=== PATIENT | male | born 1980 | race African-American/Black ===

== ENCOUNTER 2017-01-13 19:14 | Emergency (ER) | payer MEDICAID ==
[2013-03-13 13:05] VITALS: BMI 23.2
[~2017-01-13 19:14] MED LIST: ACCURETIC 10-121 TAB PO; CYMBALTA30 MG PO; FELDENE20 MG PO; FLAGYL500 MG PO; GLUCOPHAGE500 MG PO; K-DUR20 MEQ PO; LANTUS SOL100 UNIT/1 SQ; TYLENOL 325 MG325 MG PO
== END 2017-01-13 20:03 | disposition home or self-care (01) ==
LOC: D.ER 19:14
DX: M17.11 Unilateral primary osteoarthritis, right knee (principal); M25.561 Pain in right knee; E11.9 Type 2 diabetes mellitus without complications; F17.200 Nicotine dependence, unspecified, uncomplicated

== ENCOUNTER 2017-02-10 19:34 | Emergency (ER) | payer MEDICAID ==
[2013-03-13 13:05] VITALS: BMI 23.2
== END 2017-02-10 20:56 | disposition home or self-care (01) ==
LOC: D.ER 19:34
DX: S00.81XA Abrasion of other part of head, initial encounter (principal); W10.9XXA Fall (on) (from) unspecified stairs and steps, initial encounter; Y93.89 Activity, other specified; Y92.89 Other specified places as the place of occurrence of the external cause; S00.212A Abrasion of left eyelid and periocular area, initial encounter; S16.1XXA Strain of muscle, fascia and tendon at neck level, initial encounter; E11.9 Type 2 diabetes mellitus without complications; F17.200 Nicotine dependence, unspecified, uncomplicated

== ENCOUNTER → 2018-01-10 08:30 | Outpatient (CLI) | payer MEDICAID ==
[2013-03-13 13:05] VITALS: BMI 23.2
[~2018-01-10 08:30] MED LIST changes: +CLEOCIN HCL300 MG PO
== END | disposition home or self-care (01) ==
LOC: D.US 08:00
DX: R11.2 Nausea with vomiting, unspecified (principal); R79.89 Other specified abnormal findings of blood chemistry

== ENCOUNTER 2018-02-12 15:26 | Emergency (ER) | payer MEDICAID ==
[~2018-02-12] VITALS: Ht 157.5 cm; Wt 70.5 kg
[~2018-02-12 15:26] MED LIST changes: -CLEOCIN HCL300 MG PO
[2018-02-12 15:36] VITALS: Ht 157.5 cm; Wt 70.5 kg
[2018-02-12 16:23] LABS: BASOPHILS 0.2 % (0-2); EOSINOPHILS 0.2 % (0-7); HEMATOCRIT 36.5 % (42.0-54.0); HEMOGLOBIN 12.8 g/dL (13.5-17.5); IMMATURE GRANULOCYTES 0.3 % (0-5); MCH 33.4 pg (26.0-34.0); MCHC 35.1 g/dL (31.0-37.0); MCV 95.3 fL (80.0-100.0); MEAN PLATELET VOLUME 9.9 fL (7.4-10.4); NEUTROPHILS 78.3 % (40-80); PLATELET COUNT 224 10x3/uL (130-400); RBC 3.83 10x6/uL (4.20-6.10); RDW 11.7 % (11.5-14.5); WBC 17.4 10x3/uL (4.8-10.8)
[2018-02-12 16:48] LABS: ALBUMIN 3.6 g/dL (3.4-5.0); ALKALINE PHOSPHATASE 81 U/L (46-116); ALT (SGPT) 42 U/L (10-68); BILIRUBIN - TOTAL 1.01 mg/dL (0.2-1.3); CALC OSMOLALITY 267 mosm/kg (275-300); CALCIUM 8.6 mg/dL (8.5-10.1); CARBON DIOXIDE 28.8 mmol/L (21.0-32.0); CHLORIDE - SERUM 94 mmol/L (98-107); GLUCOSE 210 mg/dL (74-106); PROTEIN - SERUM 7.7 g/dL (6.4-8.2); SODIUM 132 mmol/L (136-145); UREA NITROGEN 4 mg/dL (7-18); eGFR NON AFRICAN AMERICAN 89 mL/min (90-120)
[2018-02-12] MEDS ORDERED: CLEOCIN HCL300 MG PO (18:42)
[2018-02-12 19:14] VITALS: BP 144/87
== END 2018-02-12 19:13 | disposition home or self-care (01) ==
LOC: D.ER 15:26
PROVIDERS: Family Medicine
DX: L03.211 Cellulitis of face (principal); E11.8 Type 2 diabetes mellitus with unspecified complications; I10 Essential (primary) hypertension; F17.200 Nicotine dependence, unspecified, uncomplicated

== ENCOUNTER 2018-04-13 08:52 | Inpatient (IN) | payer MEDICAID ==
[~2018-04-13] VITALS: Ht 152.4 cm; Wt 63.5 kg
--- NOTE | ~2018-04-13 | MORECARE ---
CASE MANAGEMENT DISCHARGE SUMMARY PATIENT: SALLY SALGUERO UNIT: [id number] ADM DATE: 04/13/18 AGE: 37 : 79 SEX: M ROOM/BED: D.2239 AUTHOR: ADAMARISDOC PHYSICIAN: REFERRING PHYSICIAN: LUIS MARIN MD DATE OF SERVICE: 04/14/18 Discharge Plan Patient Name: SALLY SALGUERO Facility: [facility]:[place] : 1980 Planned Disposition: Home Anticipated Discharge Date: 04/14/18 Discharge Date: Expected LOS: 1 Initial Reviewer: [email or web address] Initial Review Date: 04/14/2018 Generated: 04/14/18 11:36 am Comments DCP- Discharge Planning Updated by [email or web address]: Radha Arredondo on 04/14/18 9:[address] Patient Name: SALLY SALGUERO Admission Status: ER Accout number: [id number] Admission Date: 04-13-2018 : 1980 Admission Diagnosis: Attending: LUIS MARIN Current LOS: 1 Anticipated DC Date: 04-14-2018 Planned Disposition: Home Primary Insurance: [place] PRIVATE OPTIONS HENRRY Discharge Planning Comments: Received order for discharge. Met with patient to discuss needs at discharge. States he lives independently with his and 2 kids. States he has a glucometer and checks his blood sugar twice a day. States he has family that will take him home. Discussed home health, declines need. Denies needs for DME. No needs identified. CM will continue to follow and assist with discharge planning/needs. Technician Terminal And Repeater: Radha Arredondo DCPIA - Discharge Planning Initial Assessment Updated by [id number]: Radha Arredondo on 04/14/18 10:32 am * Is the patient Alert and Oriented? Yes * How many steps to enter\exit or inside your home? 15/0 * PCP Sheeba Caruso APN * Pharmacy [facility] [address] * Preadmission Environment Home with Family * ADLs Independent * Equipment Glucometer * List name and contact numbers for known caregivers / representatives who currently or will assist patient after discharge: Dora Salguero - [facility] - [phone] * Verbal permission to speak to the caregivers and representatives has been obtained from the patient. Yes * Community resources currently utilized None * Additional services required to return to the preadmission environment? No * Can the patient safely return to the preadmission environment? Yes * Has this patient been hospitalized within the prior 30 days at any hospital? No Patient Name: SALLY SALGUERO Page 98143 at 1036 All edits/amendments must be made on the electronic document DICTATION DATE: 04/14/18 103 DIETITIAN TEACHER: ELIZABET 04/14/18 1035 RPT#: [id number] DC DATE: STATUS: ADM IN [facility] [address] [place] [address] END OF REPORT
--- NOTE | ~2018-04-13 | HP ---
PATIENT: SALLY SALGUERO MEDICAL RECORD: [id number] ACCOUNT: [id number] LOCATION:D.MS [address]2239 : [birth year] ADMISSION DATE: 04/13/18 PCP: JAC CABAN MD HISTORY AND PHYSICAL EXAMINATION DATE OF ADMISSION: 04/13/2018 CHIEF COMPLAINT: Weakness, loss of appetite, abdominal pain, nausea, and dizzy. HISTORY: This is a 37-year-old -[place], who is followed by Sheeba Caruso APN, at [facility]. He presents with weakness, low appetite, nausea, dizziness, and balance being off for the last week or so. In the ER, his sodium was 123 and chloride was 83. The rest of the basic metabolic panel was fairly unremarkable. His AST was elevated at 80 and ALT was elevated at 72. Urine drug screen positive for marijuana. Chest x-ray showed no acute process. CT of the abdomen showed no acute process. He is admitted for further evaluation. PAST MEDICAL AND SURGICAL HISTORY: Diabetes, diagnosed approximately 4-5 years ago. He has had intermittent vomiting, frequent nausea, and heartburn. He has had history of LFTs in the past, may be due to alcohol consumption. He has hypertension. PAST SURGICAL HISTORY: None. ALLERGIES: NITRATES. HOME MEDICATIONS: Hydroxyzine 25 mg at bedtime, metformin 1000 mg twice a day, diclofenac 75 mg twice a day as needed, lisinopril/hydrochlorothiazide 20/25 once a day, and takes Lantus 5 units of insulin daily. HABITS: He smokes daily. He drinks at least 2 tall cans of beer a day. He admits to smoking marijuana. SOCIAL HISTORY: Lives with and 2 children. FAMILY HISTORY: Both parents are alive. He knows his father has diabetes, but not sure about anything else. His mother has lupus. REVIEW OF SYSTEMS: GENERAL: He admits to some weight loss, but cannot say how much. HEENT: No particular sinus or allergy problems. RESPIRATORY: No diagnosis of emphysema or asthma at this time. CARDIAC: No chest pain, palpitations, or known heart disease. GASTROINTESTINAL: He has had intermittent vomiting, frequent nausea, and some heartburn for months if not longer. He has had elevated liver functions. In December 2017, his ALT was 42 and AST was 47; but in 2016, his ALT was 115 and AST was 125. GENITOURINARY: No significant problems there. MUSCULOSKELETAL: Few joint aches and pains. NEUROLOGIC: No seizures or migraines. PSYCHIATRIC: Denies depression or melancholia. PHYSICAL EXAMINATION: VITAL SIGNS: Today, temperature 98.7, pulse 84, respirations 20, blood pressure HISTORY AND PHYSICAL [id number] SALLY SALGUEROONT 133/89, and O2 sat 99%. GENERAL: He is awake, alert, and does not appear in acute distress. SKIN: Warm and dry. He has several tattoos. HEENT: Grossly within normal limits. NECK: Supple. No JVD or bruit. HEART: Regular rate and rhythm without murmur. LUNGS: Clear. ABDOMEN: Soft and nontender. No guarding. No rebound. No mass. EXTREMITIES: No edema. LABORATORIES: Lactic acid was 3.5 this morning. CBC showed white count of 12,000 and hemoglobin 13.9. Sodium 123, potassium 4.0, chloride 83, CO2 of 26.7, BUN 4, creatinine 0.9, glucose 185, and calcium 9.0. Total bilirubin 1.56, AST 80, and ALT 72. Troponin is okay at 0.044. proBNP 178. TSH 1.89. Influenza A and B were both negative. Urine drug screen was positive for carboxy THC. DIAGNOSTIC DATA: Chest x-ray showed no acute process. CT of the abdomen showed no acute process. ASSESSMENT: Weakness, nausea, hyponatremia, elevated liver enzymes, and alcohol use. PLAN: We will check lipase and amylase. Get ultrasound of the abdomen. Hold metformin for 2 days since he had CT. Recheck liver enzymes. He may need GI consult. Other tests or procedures as warranted. TRANSINT:[id number] Voice Confirmation ID: [id number] DOCUMENT ID: [id number] LUIS MARIN MD at 2116 CC: [id number] DICTATION DATE: 04/13/18 1557 HEALTHCARE SALES REPRESENTATIVE: 04/13/18 1853 ADM IN [place] [address] [place] [address]
--- NOTE | ~2018-04-13 | MORECARE ---
CASE MANAGEMENT DISCHARGE SUMMARY PATIENT: SALLY SALGUERO UNIT: [id number] ADM DATE: 04/13/18 AGE: 37 : 78 SEX: M ROOM/BED: D.2239 AUTHOR: CLARISSA BAILON PHYSICIAN: REFERRING PHYSICIAN: LUIS MARIN MD DATE OF SERVICE: 04/17/18 Discharge Plan Patient Name: SALLY SALGUERO Facility: [facility]:[place] : 1980 Planned Disposition: Home Anticipated Discharge Date: 04/14/18 Discharge Date: 04/14/2018 Expected LOS: 1 Initial Reviewer: [email or web address] Initial Review Date: 04/14/2018 Generated: 04/17/18 12:14 pm Comments DCP- Discharge Planning Updated by [email or web address]: Radha Arredondo on 04/14/18 9:[address] Patient Name: SALLY SALGUERO Admission Status: ER Accout number: [id number] Admission Date: 04-13-2018 : 1980 Admission Diagnosis: Attending: LUIS MARIN Current LOS: 1 Anticipated DC Date: 04-14-2018 Planned Disposition: Home Primary Insurance: [place] PRIVATE OPTIONS HENRRY Discharge Planning Comments: Received order for discharge. Met with patient to discuss needs at discharge. States he lives independently with his and 2 kids. States he has a glucometer and checks his blood sugar twice a day. States he has family that will take him home. Discussed home health, declines need. Denies needs for DME. No needs identified. CM will continue to follow and assist with discharge planning/needs. Gasoline Power Shovel Operator: Radha Arredondo DCPIA - Discharge Planning Initial Assessment Updated by [email or web address]: Radha Arredondo on 04/14/18 10:32 am * Is the patient Alert and Oriented? Yes * How many steps to enter\exit or inside your home? 15/0 * PCP Sheeba Caruso APN * Pharmacy [facility] [address] * Preadmission Environment Home with Family * ADLs Independent * Equipment Glucometer * List name and contact numbers for known caregivers / representatives who currently or will assist patient after discharge: Dora Salguero - [facility] - [phone] * Verbal permission to speak to the caregivers and representatives has been obtained from the patient. Yes * Community resources currently utilized None * Additional services required to return to the preadmission environment? No * Can the patient safely return to the preadmission environment? Yes * Has this patient been hospitalized within the prior 30 days at any hospital? No Last DP export: 04/17/18 10:08 Patient Name: SALLY SALGUERO Page [phone] at 1114 All edits/amendments must be made on the electronic document DICTATION DATE: 04/17/181113 BALL MILL MIXER: ELIZABET 04/17/181113 RPT#: [id number] DC DATE:04/14/18 STATUS: DIS IN [facility] [address] [place] [address] END OF REPORT
--- NOTE | ~2018-04-13 | MORECARE ---
CASE MANAGEMENT DISCHARGE SUMMARY PATIENT: SALLY SALGUERO UNIT: [id number] ADM DATE: 04/13/18 AGE: 37 : 78 SEX: M ROOM/BED: D.2239 AUTHOR: CLARISSA BAILON PHYSICIAN: REFERRING PHYSICIAN: LUIS MARIN MD DATE OF SERVICE: 04/17/18 Discharge Plan Patient Name: SALLY SALGUERO Facility: [facility]:[place] : 1980 Planned Disposition: Home Anticipated Discharge Date: 04/14/18 Discharge Date: 04/14/2018 Expected LOS: 1 Initial Reviewer: [email or web address] Initial Review Date: 04/14/2018 Generated: 04/17/18 12:08 pm Comments DCP- Discharge Planning Updated by [email or web address]: Radha Arredondo on 04/14/18 9:[address] Patient Name: SALLY SALGUERO Admission Status: ER Accout number: [id number] Admission Date: 04-13-2018 : 1980 Admission Diagnosis: Attending: LUIS MARIN Current LOS: 1 Anticipated DC Date: 04-14-2018 Planned Disposition: Home Primary Insurance: [place] PRIVATE OPTIONS HENRR[place] Discharge Planning Comments: Received order for discharge. Met with patient to discuss needs at discharge. States he lives independently with his and 2 kids. States he has a glucometer and checks his blood sugar twice a day. States he has family that will take him home. Discussed home health, declines need. Denies needs for DME. No needs identified. CM will continue to follow and assist with discharge planning/needs. Marine Propulsion Technician: Radha Arredondo DCPIA - Discharge Planning Initial Assessment Updated by [email or web address]: Radha Arredondo on 04/14/18 10:32 am * Is the patient Alert and Oriented? Yes * How many steps to enter\exit or inside your home? 15/0 * PCP Sheeba Caruso APN * Pharmacy [facility] [address] * Preadmission Environment Home with Family * ADLs Independent * Equipment Glucometer * List name and contact numbers for known caregivers / representatives who currently or will assist patient after discharge: Dora Salguero - [facility] - [phone] * Verbal permission to speak to the caregivers and representatives has been obtained from the patient. Yes * Community resources currently utilized None * Additional services required to return to the preadmission environment? No * Can the patient safely return to the preadmission environment? Yes * Has this patient been hospitalized within the prior 30 days at any hospital? No Last DP export: 04/14/18 9:36 Patient Name: SALLY SALGUERO Page 69009 at 1108 All edits/amendments must be made on the electronic document DICTATION DATE: 04/17/181106 CLINICAL DENTAL TECHNICIAN: ELIZABET 04/17/181106 RPT#: [id number] DC DATE:04/14/18 STATUS: DIS IN [facility] [address] [place] [address] END OF REPORT
[~2018-04-13 08:52] MED LIST changes: +CLEOCIN HCL300 MG PO
[2018-04-13 09:12] LABS: BASOPHILS 0.2 % (0-2); EOSINOPHILS 0.4 % (0-7); HEMATOCRIT 37.7 % (42.0-54.0); HEMOGLOBIN 13.9 g/dL (13.5-17.5); IMMATURE GRANULOCYTES 0.2 % (0-5); LYMPHOCYTES 19.8 % (15-50); MCH 34.4 pg (26.0-34.0); MCHC 36.9 g/dL (31.0-37.0); MCV 93.3 fL (80.0-100.0); MONOCYTES 6.3 % (2-11); NEUTROPHILS 73.1 % (40-80); PLATELET COUNT 220 10x3/uL (130-400); RBC 4.04 10x6/uL (4.20-6.10); RDW 11.3 % (11.5-14.5); WBC 12.4 10x3/uL (4.8-10.8)
[2018-04-13 09:28] LABS: ALBUMIN 3.6 g/dL (3.4-5.0); ALKALINE PHOSPHATASE 84 U/L (46-116); ALT (SGPT) 72 U/L (10-68); BILIRUBIN - TOTAL 1.56 mg/dL (0.2-1.3); CALC OSMOLALITY 249 mosm/kg (275-300); CARBON DIOXIDE 26.7 mmol/L (21.0-32.0); CREATININE - SERUM 0.9 mg/dL (0.6-1.3); GLUCOSE 185 mg/dL (74-106); PROTEIN - SERUM 7.6 g/dL (6.4-8.2); SODIUM 123 mmol/L (136-145); UREA NITROGEN 4 mg/dL (7-18); eGFR NON AFRICAN AMERICAN > 90 mL/min (90-120)
[2018-04-13 09:30] LABS: CHLORIDE - SERUM 83 mmol/L (98-107)
[2018-04-13 09:33] LABS: KETONE - SERUM NEGATIVE (NEGATIVE)
[2018-04-13 09:48] VITALS: BP 136/87
[2018-04-13 09:51] LABS: LIPASE 89 U/L (73-393); PRO BNP 178 pg/mL (0-125); THYROID STIMULATING HORMONE 1.89 uIU/mL (0.36-3.74); TROPONIN-I 0.044 ng/mL (0.000-0.060)
[2018-04-13 10:28] LABS: APPEARANCE CLEAR (CLEAR); COLOR AMBER (YELLOW)
[2018-04-13 10:29] LABS: BILIRUBIN NEGATIVE (NEGATIVE); GLUCOSE 50 mg/dL (NEGATIVE); KETONE NEGATIVE (NEGATIVE); NITRITE NEGATIVE (NEGATIVE); PROTEIN NEGATIVE (NEGATIVE); SPECIFIC GRAVITY 1.005 (1.005-1.020)
[2018-04-13 10:34] LABS: UDS - AMPHET NEGATIVE QUAL (NEGATIVE); UDS - BARB NEGATIVE QUAL (NEGATIVE); UDS - BENZO NEGATIVE QUAL (NEGATIVE); UDS - COCAINE NEGATIVE QUAL (NEGATIVE); UDS - OPIATE NEGATIVE QUAL (NEGATIVE); UDS - PCP NEGATIVE QUAL (NEGATIVE); UDS - THC POSITIVE QUAL (NEGATIVE)
[2018-04-13 11:04] VITALS: BP 127/90
[2018-04-13 12:45] VITALS: BP 133/89; Ht 152.4 cm; Wt 63.5 kg
[2018-04-13 20:01] VITALS: BP 121/88
[2018-04-14 04:25] VITALS: BP 122/81
[2018-04-14 05:35] LABS: BASOPHILS 0.2 % (0-2); EOSINOPHILS 1.2 % (0-7); IMMATURE GRANULOCYTES 0.1 % (0-5); LYMPHOCYTES 20.7 % (15-50); MCH 33.3 pg (26.0-34.0); MCHC 35.4 g/dL (31.0-37.0); MCV 94.1 fL (80.0-100.0); MEAN PLATELET VOLUME 9.9 fL (7.4-10.4); MONOCYTES 6.4 % (2-11); NEUTROPHILS 71.4 % (40-80); PLATELET COUNT 198 10x3/uL (130-400); RDW 11.4 % (11.5-14.5)
[2018-04-14 05:55] LABS: HEMATOCRIT 28.5 % (42.0-54.0); HEMOGLOBIN 10.1 g/dL (13.5-17.5); RBC 3.03 10x6/uL (4.20-6.10); WBC 8.3 10x3/uL (4.8-10.8)
[2018-04-14 06:02] LABS: ALBUMIN 2.8 g/dL (3.4-5.0); ALKALINE PHOSPHATASE 57 U/L (46-116); ALT (SGPT) 54 U/L (10-68); BILIRUBIN - TOTAL 0.91 mg/dL (0.2-1.3); CALCIUM 8.1 mg/dL (8.5-10.1); CARBON DIOXIDE 26.6 mmol/L (21.0-32.0); CHLORIDE - SERUM 97 mmol/L (98-107); CREATININE - SERUM 0.8 mg/dL (0.6-1.3); PROTEIN - SERUM 5.9 g/dL (6.4-8.2); SODIUM 131 mmol/L (136-145); UREA NITROGEN 3 mg/dL (7-18); eGFR NON AFRICAN AMERICAN > 90 mL/min (90-120)
[2018-04-14 06:03] LABS: CALC OSMOLALITY 261 mosm/kg (275-300); GLUCOSE 129 mg/dL (74-106); POTASSIUM - SERUM 3.3 mmol/L (3.5-5.1)
[2018-04-14 07:59] VITALS: BP 148/92
== END 2018-04-14 10:55 | disposition home or self-care (01) | DRG 641 ==
LOC: D.ER 08:52 → D.EDHOLD 11:21 → OBSVTIME 11:22 → D.MS 11:23
PROVIDERS: Family Medicine
DX: E87.1 Hypo-osmolality and hyponatremia (principal); E87.8 Other disorders of electrolyte and fluid balance, not elsewhere classified; R79.89 Other specified abnormal findings of blood chemistry; E11.9 Type 2 diabetes mellitus without complications; Z79.4 Long term (current) use of insulin; I10 Essential (primary) hypertension; F17.210 Nicotine dependence, cigarettes, uncomplicated; Z72.89 Other problems related to lifestyle; F12.90 Cannabis use, unspecified, uncomplicated; R63.0 Anorexia

== ENCOUNTER 2018-12-11 22:48 | Emergency (ER) | payer MEDICAID ==
[2018-12-11 22:57] VITALS: BMI 28.3
[2018-12-11] MEDS ORDERED: VIBRAMYCIN 100100 MG PO (23:11)
[2018-12-11] MEDS ORDERED: HYDROCODON-ACE1 EAC7 PO (23:11)
[2018-12-12 00:04] LABS: BASOPHILS 0.4 % (0-2); EOSINOPHILS 1.8 % (0-7); HEMATOCRIT 34.1 % (42.0-54.0); HEMOGLOBIN 12.2 g/dL (13.5-17.5); IMMATURE GRANULOCYTES 0.2 % (0-5); LYMPHOCYTES 38.7 % (15-50); MCH 33.1 pg (26.0-34.0); MCHC 35.8 g/dL (31.0-37.0); MCV 92.4 fL (80.0-100.0); MEAN PLATELET VOLUME 9.7 fL (7.4-10.4); MONOCYTES 6.3 % (2-11); NEUTROPHILS 52.6 % (40-80); PLATELET COUNT 221 10x3/uL (130-400); RBC 3.69 10x6/uL (4.20-6.10); RDW 12.3 % (11.5-14.5)
[2018-12-12 00:10] VITALS: BP 115/76
[2018-12-12 00:18] LABS: ALBUMIN 3.2 g/dL (3.4-5.0); ALKALINE PHOSPHATASE 92 U/L (46-116); ALT (SGPT) 52 U/L (10-68); BILIRUBIN - TOTAL 0.27 mg/dL (0.2-1.3); CALC OSMOLALITY 280 mosm/kg (275-300); CALCIUM 8.6 mg/dL (8.5-10.1); CARBON DIOXIDE 23.4 mmol/L (21.0-32.0); CHLORIDE - SERUM 101 mmol/L (98-107); CREATININE - SERUM 0.8 mg/dL (0.6-1.3); GLUCOSE 157 mg/dL (74-106); POTASSIUM - SERUM 3.9 mmol/L (3.5-5.1); PROTEIN - SERUM 7.1 g/dL (6.4-8.2); SODIUM 141 mmol/L (136-145); UREA NITROGEN 5 mg/dL (7-18); eGFR NON AFRICAN AMERICAN > 90 mL/min (90-120)
== END 2018-12-12 00:10 | disposition home or self-care (01) ==
LOC: D.ER 22:48
PROVIDERS: Emergency Medicine
DX: N49.2 Inflammatory disorders of scrotum (principal)

== ENCOUNTER 2019-03-04 07:33 | Emergency (ER) | payer MEDICAID ==
[~2019-03-04] VITALS: Ht 152.4 cm; Wt 65.9 kg
[~2019-03-04 07:33] MED LIST changes: +HYDROCODON-ACE1 EAC7 PO; +VIBRAMYCIN 100100 MG PO
[2019-03-04 07:35] VITALS: Ht 152.4 cm; Wt 65.9 kg
[2019-03-04] MEDS ORDERED: MEGACE 20 MG TA20 MG PO (07:49)
[2019-03-04] MEDS ORDERED: ATARAX 25 MG TA25 MG PO (07:50)
[2019-03-04] MEDS ORDERED: ATARAX 25 MG TA25 MG (07:50)
[2019-03-04] MEDS ORDERED: NEURONTIN 300300 MG PO (07:51)
[2019-03-04] MEDS ORDERED: GLUCOPHAGE1000 MG PO (07:51)
[2019-03-04] MEDS ORDERED: BUSPAR10 MG PO (07:52)
[2019-03-04] MEDS ORDERED: ZOCOR10 MG PO (07:52)
[2019-03-04] MEDS ORDERED: ALBUTEROL SULF8.5 GM INH (08:12)
[2019-03-04] MEDS ORDERED: KEFLEX500 MG PO (08:21)
[2019-03-04 08:44] VITALS: BP 110/64
== END 2019-03-04 08:46 | disposition home or self-care (01) ==
LOC: D.ER 07:33
DX: R06.00 Dyspnea, unspecified (principal)

== ENCOUNTER 2019-04-18 21:40 | Emergency (ER) | payer MEDICAID ==
[~2019-04-18] VITALS: Ht 152.4 cm; Wt 65.9 kg
[~2019-04-18 21:40] MED LIST changes: +ALBUTEROL SULF8.5 GM INH; +ATARAX 25 MG TA25 MG; +ATARAX 25 MG TA25 MG PO; +BUSPAR10 MG PO; +GLUCOPHAGE1000 MG PO; +KEFLEX500 MG PO; +MEGACE 20 MG TA20 MG PO; +NEURONTIN 300300 MG PO; +ZOCOR10 MG PO
[2019-04-18 21:54] VITALS: Ht 152.4 cm; Wt 65.9 kg
[2019-04-18] MEDS ORDERED: CLEOCIN HCL300 MG PO (22:13)
[2019-04-18] MEDS ORDERED: POLYTRIM EYE DR10 ML EACH EYE (22:13)
[2019-04-18 23:06] VITALS: BP 112/65
== END 2019-04-18 23:06 | disposition home or self-care (01) ==
LOC: D.ER 21:40
DX: H10.9 Unspecified conjunctivitis (principal); L03.213 Periorbital cellulitis; F17.210 Nicotine dependence, cigarettes, uncomplicated; E11.9 Type 2 diabetes mellitus without complications

== ENCOUNTER 2019-04-24 15:39 | Emergency (ER) | payer MEDICAID ==
[2019-04-18 21:54] VITALS: Ht 152.4 cm; Wt 68.2 kg
[~2019-04-24] VITALS: Ht 152.4 cm; Wt 68.2 kg
[~2019-04-24 15:39] MED LIST changes: +POLYTRIM EYE DR10 ML EACH EYE
[2019-04-24 16:22] LABS: BASOPHILS 0.7 % (0-2); EOSINOPHILS 0.7 % (0-7); IMMATURE GRANULOCYTES 0.1 % (0-5); LYMPHOCYTES 39.7 % (15-50); MCH 33.1 pg (26.0-34.0); MCHC 34.2 g/dL (31.0-37.0); MCV 96.7 fL (80.0-100.0); MEAN PLATELET VOLUME 9.3 fL (7.4-10.4); MONOCYTES 4.6 % (2-11); NEUTROPHILS 54.2 % (40-80); PLATELET COUNT 235 10x3/uL (130-400); RBC 3.93 10x6/uL (4.20-6.10); RDW 12.2 % (11.5-14.5); WBC 8.7 10x3/uL (4.8-10.8)
[2019-04-24 16:49] LABS: CALC OSMOLALITY 267 mosm/kg (275-300); CALCIUM 8.6 mg/dL (8.5-10.1); CARBON DIOXIDE 25.9 mmol/L (21.0-32.0); CHLORIDE - SERUM 93 mmol/L (98-107); POTASSIUM - SERUM 4.4 mmol/L (3.5-5.1); SODIUM 131 mmol/L (136-145); UREA NITROGEN 5 mg/dL (7-18); eGFR NON AFRICAN AMERICAN 88 mL/min (90-120)
[2019-04-24 16:52] LABS: GLUCOSE 246 mg/dL (74-106)
[2019-04-24 16:53] LABS: ALBUMIN 3.7 g/dL (3.4-5.0); ALKALINE PHOSPHATASE 121 U/L (46-116); ALT (SGPT) 77 U/L (10-68); BILIRUBIN - TOTAL 0.69 mg/dL (0.2-1.3); PROTEIN - SERUM 8.4 g/dL (6.4-8.2)
[2019-04-24 20:10] VITALS: BP 149/91
== END 2019-04-24 20:10 | disposition home or self-care (01) ==
LOC: D.ER 15:39
PROVIDERS: Family Medicine
DX: E11.65 Type 2 diabetes mellitus with hyperglycemia (principal)

== ENCOUNTER 2019-09-07 21:03 | Emergency (ER) | payer SELFPAY ==
[~2019-09-07] VITALS: Ht 152.4 cm; Wt 59.1 kg
[2019-09-07 21:05] VITALS: Ht 152.4 cm; Wt 59.1 kg
[2019-09-07] MEDS ORDERED: LEVEMIR FL100 UNIT/1 SC (21:06)
[2019-09-07] MEDS ORDERED: VIBRAMYCIN 100100 MG PO (21:42)
[2019-09-07] MEDS ORDERED: FLOMAX0.4 MG PO (21:42)
[2019-09-07 22:21] LABS: NITRITE NEGATIVE (NEGATIVE); SPECIFIC GRAVITY 1.015 (1.005-1.020)
[2019-09-07 22:22] LABS: BILIRUBIN NEGATIVE (NEGATIVE); GLUCOSE 1000 mg/dL (NEGATIVE); KETONE NEGATIVE (NEGATIVE); UROBILINOGEN NORMAL (NORMAL)
[2019-09-07 22:36] VITALS: BP 119/85
[2019-09-10 10:09] LABS: CHLAMYDIA TRACHOMATIS, NAA Negative (Negative)
== END 2019-09-07 22:36 | disposition home or self-care (01) ==
LOC: D.ER 21:03
PROVIDERS: Family Medicine
DX: N41.0 Acute prostatitis (principal); E11.40 Type 2 diabetes mellitus with diabetic neuropathy, unspecified; E78.5 Hyperlipidemia, unspecified; I10 Essential (primary) hypertension; Z72.0 Tobacco use; Z79.4 Long term (current) use of insulin; R30.0 Dysuria; R39.15 Urgency of urination

== ENCOUNTER 2019-10-28 21:50 | Inpatient (IN) | payer MEDICAID ==
[~2019-10-28] VITALS: Ht 157.5 cm; Wt 53.4 kg
[~2019-10-28 21:50] MED LIST changes: +FLOMAX0.4 MG PO; +LEVEMIR FL100 UNIT/1 SC
[2019-10-28 22:29] LABS: BILIRUBIN NEGATIVE (NEGATIVE); GLUCOSE 1000 mg/dL (NEGATIVE); KETONE SMALL mg/dL (NEGATIVE); NITRITE NEGATIVE (NEGATIVE); UROBILINOGEN NORMAL (NORMAL)
[2019-10-28 22:29] LABS: BASOPHILS 0.4 % (0-2); EOSINOPHILS 1.6 % (0-7); HEMATOCRIT 40.7 % (42.0-54.0); HEMOGLOBIN 13.9 g/dL (13.5-17.5); IMMATURE GRANULOCYTES 0.1 % (0-5); LYMPHOCYTES 39.1 % (15-50); MCH 33.4 pg (26.0-34.0); MCHC 34.2 g/dL (31.0-37.0); MCV 97.8 fL (80.0-100.0); MEAN PLATELET VOLUME 11.4 fL (7.4-10.4); MONOCYTES 5.8 % (2-11); RBC 4.16 10x6/uL (4.20-6.10); RDW 13.4 % (11.5-14.5); WBC 7.7 10x3/uL (4.8-10.8)
[2019-10-28 22:39] LABS: PLATELET COUNT 170 10x3/uL (130-400)
[2019-10-28 22:52] LABS: ALBUMIN 3.9 g/dL (3.4-5.0); ALKALINE PHOSPHATASE 114 U/L (30-120); ALT (SGPT) 30 U/L (10-68); BILIRUBIN - TOTAL 0.53 mg/dL (0.2-1.3); CALCIUM 8.5 mg/dL (8.5-10.1); CARBON DIOXIDE 23.6 mmol/L (21.0-32.0); CHLORIDE - SERUM 92 mmol/L (98-107); CREATININE - SERUM 1.1 mg/dL (0.6-1.3); PROTEIN - SERUM 8.3 g/dL (6.4-8.2); SODIUM 130 mmol/L (136-145); UREA NITROGEN 15 mg/dL (7-18); eGFR NON AFRICAN AMERICAN 79 mL/min (90-120)
[2019-10-28 22:54] LABS: CALC OSMOLALITY 286 mosm/kg (275-300)
[2019-10-28 22:55] LABS: GLUCOSE 541 mg/dL (74-106)
[2019-10-28 22:56] LABS: POTASSIUM - SERUM 6.8 mmol/L (3.5-5.1)
--- NOTE | 2019-10-29 00:10 | NUR ---
PTS IV CALCIUM FINISHED AT THIS TIME.
[2019-10-29 00:15] VITALS: BP 131/89
[2019-10-29 00:53] LABS: CALCIUM 8.2 mg/dL (8.5-10.1); CARBON DIOXIDE 25.5 mmol/L (21.0-32.0); CHLORIDE - SERUM 100 mmol/L (98-107); CREATININE - SERUM 0.9 mg/dL (0.6-1.3); SODIUM 135 mmol/L (136-145); UREA NITROGEN 12 mg/dL (7-18); eGFR NON AFRICAN AMERICAN > 90 mL/min (90-120)
[2019-10-29 00:54] LABS: CALC OSMOLALITY 277 mosm/kg (275-300); GLUCOSE 237 mg/dL (74-106); POTASSIUM - SERUM 3.5 mmol/L (3.5-5.1)
[2019-10-29 07:12] LABS: HEMATOCRIT 33.2 % (42.0-54.0); HEMOGLOBIN 11.2 g/dL (13.5-17.5); MCH 32.4 pg (26.0-34.0); MCHC 33.7 g/dL (31.0-37.0); MEAN PLATELET VOLUME 10.5 fL (7.4-10.4); RBC 3.46 10x6/uL (4.20-6.10); RDW 12.9 % (11.5-14.5); WBC 8.6 10x3/uL (4.8-10.8)
[2019-10-29 07:21] LABS: PLATELET COUNT 232 10x3/uL (130-400)
[2019-10-29 07:27] LABS: CALC OSMOLALITY 268 mosm/kg (275-300); CALCIUM 8.4 mg/dL (8.5-10.1); CARBON DIOXIDE 26.9 mmol/L (21.0-32.0); CHLORIDE - SERUM 100 mmol/L (98-107); CREATININE - SERUM 0.8 mg/dL (0.6-1.3); GLUCOSE 99 mg/dL (74-106); MAGNESIUM - SERUM 1.7 mg/dL (1.8-2.4); PHOSPHOROUS 3.2 mg/dL (2.5-4.9); POTASSIUM - SERUM 3.7 mmol/L (3.5-5.1); SODIUM 135 mmol/L (136-145); UREA NITROGEN 11 mg/dL (7-18); eGFR NON AFRICAN AMERICAN > 90 mL/min (90-120)
--- NOTE | 2019-10-29 07:40 | NUR ---
ASSESSMENT DONE. DENIES NEEDS
[2019-10-29 08:56] VITALS: BP 124/86
[2019-10-29 10:41] LABS: HYPOCHROMASIA OCC; LYMPHOCYTES 46 % (15-50); MONOCYTES 6 % (2-11); NEUTROPHILS 48 % (40-80); PLATELET ESTIMATE NORMAL
[2019-10-29 13:50] VITALS: BP 117/71
[2019-10-29 14:47] VITALS: Ht 157.5 cm; Wt 53.4 kg
--- NOTE | 2019-10-29 15:16 | NUR ---
I have reviewed this patient and I concur with the Shift Assessment completed by the Licensed Practical Nurse today this shift.
[2019-10-29 15:35] LABS: UDS - AMPHET NEGATIVE QUAL (NEGATIVE); UDS - BARB NEGATIVE QUAL (NEGATIVE); UDS - BENZO NEGATIVE QUAL (NEGATIVE); UDS - COCAINE NEGATIVE QUAL (NEGATIVE); UDS - OPIATE NEGATIVE QUAL (NEGATIVE); UDS - PCP NEGATIVE QUAL (NEGATIVE); UDS - THC POSITIVE QUAL (NEGATIVE)
[2019-10-29 19:23] VITALS: BP 143/90
--- NOTE | 2019-10-29 19:33 | NUR ---
REPORT RECEIVED, WILL CONTINUE POC. PATIENT IS RESTING WITH EYES CLOSED ON RT SIDE. NO S/S OF DISTRESS OBSERVED, RR EVEN AND UNLABORED. CL IN REACH, BED LOCKED AND LOWERED. WILL CTM.
[2019-10-29 20:00] VITALS: BP 146/91
--- NOTE | 2019-10-29 20:37 | NUR ---
ADMINISTERED HS MEDS AND LANTUS AND HUMULIN PER SLIDING SCALE. PATIENT EYES ARE SLIGHTLY SWOLLEN, HE SAYS THEY FEEL HEAVY.
[2019-10-30 04:00] VITALS: BP 119/90
[2019-10-30 05:04] LABS: BASOPHILS 0.1 % (0-2); EOSINOPHILS 1.1 % (0-7); HEMATOCRIT 33.8 % (42.0-54.0); HEMOGLOBIN 11.5 g/dL (13.5-17.5); IMMATURE GRANULOCYTES 0.2 % (0-5); LYMPHOCYTES 42.5 % (15-50); MCH 32.4 pg (26.0-34.0); MCV 95.2 fL (80.0-100.0); MEAN PLATELET VOLUME 11.2 fL (7.4-10.4); MONOCYTES 6.1 % (2-11); PLATELET COUNT 197 10x3/uL (130-400); RBC 3.55 10x6/uL (4.20-6.10); RDW 12.7 % (11.5-14.5); WBC 9.4 10x3/uL (4.8-10.8)
[2019-10-30 05:19] LABS: CALC OSMOLALITY 270 mosm/kg (275-300); CALCIUM 8.2 mg/dL (8.5-10.1); CARBON DIOXIDE 26.3 mmol/L (21.0-32.0); CHLORIDE - SERUM 102 mmol/L (98-107); CREATININE - SERUM 0.6 mg/dL (0.6-1.3); GLUCOSE 127 mg/dL (74-106); MAGNESIUM - SERUM 1.7 mg/dL (1.8-2.4); PHOSPHOROUS 2.8 mg/dL (2.5-4.9); POTASSIUM - SERUM 3.2 mmol/L (3.5-5.1); SODIUM 135 mmol/L (136-145); UREA NITROGEN 9 mg/dL (7-18); eGFR NON AFRICAN AMERICAN > 90 mL/min (90-120)
--- NOTE | 2019-10-30 05:56 | NUR ---
PATIENT K+ 3.2 AND MAG 1.7 TREATED PER ELECTROLYTE PROTOCOL.
--- NOTE | 2019-10-30 07:33 | NUR ---
ASSESSMENT DONE. DENIES NEEDS
[2019-10-30] MEDS ORDERED: GLUCOPHAGE1000 MG PO (09:43)
[2019-10-30] MEDS ORDERED: BASAGLAR K100 UNIT/1 SC (09:43)
[2019-10-30 10:17] VITALS: BP 162/112
--- NOTE | 2019-10-30 11:00 | NUR ---
I have reviewed this patient and I concur with the Shift Assessment completed by the Licensed Practical Nurse today this shift.
--- NOTE | 2019-10-30 11:41 | MORECARE ---
CASE MANAGEMENT DISCHARGE SUMMARY PATIENT: SALLY SALGUERO UNIT: [id number] ADM DATE: 10/29/19 AGE: 39 : 79 SEX: M ROOM/BED: D.2106 AUTHOR: CLARISSA BAILON PHYSICIAN: REFERRING PHYSICIAN: LEOPOLDO COVARRUBIAS MD DATE OF SERVICE: 10/30/19 Discharge Plan Patient Name: SALLY SALGUERO Facility: [facility]:[place] : 1980 Planned Disposition: Home Anticipated Discharge Date: 10/30/19 Discharge Date: Expected LOS: 1 Initial Reviewer: [email or web address] Initial Review Date: 10/29/2019 Generated: 10/30/19 12:41 pm Comments DCP- Discharge Planning Updated by [email or web address]: Libia Pimentel on 10/30/19 10:[address] CM contacted Andre with [employer] in regards to insurance application for Medicaid services. CM will provide a Glucometer, strips, lancet, Metformin 2000 mg BID ([facility])and Insulin. CM met with patient regarding DC needs/plans. Patient is alert/oriented, in agreement to interview. PCP: Dr. Velazco. Pharmacy: [facility] DME: None. Declines HHS, Rehab, SNF. Patient states he has "a bunch of steps w/rails going into his home". Patient lives with his , Karma and 2 children, #[phone]. Patient's brother will drive him home. Instructed patient to stop by [facility] to meat pickler his Metformin (CM supply) and CM will provide patient with a glucometer, strips, lancets. Patient voices no other needs at this time. DCP- Discharge Planning Updated by [email or web address]: Libia Pimentel on 10/29/19 7:[address] Contacted Nicholas with [employer] regarding patient's insurance status. Patient Name: SALLY SALGUERO Page 53754 at 1141 All edits/amendments must be made on the electronic document DICTATION DATE: 10/30/19 1141 STEAM PAN SPONGER: ELIZABET 10/30/19 1141 RPT#: [id number] DC DATE: STATUS: ADM IN [facility] [address] [place] [address] END OF REPORT
--- NOTE | 2019-10-30 11:48 | MORECARE ---
CASE MANAGEMENT DISCHARGE SUMMARY PATIENT: SALLY SALGUERO UNIT: [id number] ADM DATE: 10/29/19 AGE: 39 : 78 SEX: M ROOM/BED: D.210 AUTHOR: ADAMARIS,DOC PHYSICIAN: REFERRING PHYSICIAN: LEOPOLDO COVARRUBIAS MD DATE OF SERVICE: 10/30/19 Discharge Plan Patient Name: SALLY SALGUERO Facility: [facility]:[place] : 1980 Planned Disposition: Home Anticipated Discharge Date: 10/30/19 Discharge Date: Expected LOS: 1 Initial Reviewer: [email or web address] Initial Review Date: 10/29/2019 Generated: 10/30/19 12:47 pm Comments DCP- Discharge Planning Updated by [email or web address]: Libia Pimentel on 10/30/19 10:[address] CM contacted Andre with [employer] in regards to insurance application for Medicaid services. CM will provide a Glucometer, strips, lancet, Metformin 2000 mg BID ([facility])and Insulin. CM met with patient regarding DC needs/plans. Patient is alert/oriented, in agreement to interview. PCP: Dr. Velazco. [facility]acy: [facility] DME: None. Declines HHS, Rehab, SNF. Patient states he has "a bunch of steps w/rails going into his home". Patient lives with his , Karma and 2 children, #[phone]. Patient's brother will drive him home. Instructed patient to stop by [facility] to picker / packer his Metformin (CM supply) and CM will provide patient with a glucometer, strips, lancets. Patient voices no other needs at this time. DCP- Discharge Planning Updated by [email or web address]: Libia Pimentel on 10/29/19 7:[address] Contacted Nicholas with [employer] regarding patient's insurance status. DCPIA - Discharge Planning Initial Assessment Updated by [id number]: Libia Pimentel on 10/30/19 11:45 am * Is the patient Alert and Oriented? Yes * How many steps to enter\\exit or inside your home? "a bunch" * PCP Dr. Velazco * Pharmacy [facility] * Preadmission Environment Home with Family * Equipment None * Other Equipment Patient needs a glucometer, strips, lancets * List name and contact numbers for known caregivers / representatives who currently or will assist patient after discharge: Karma Salguero #[phone] * Verbal permission to speak to the caregivers and representatives has been obtained from the patient. N/A * Community resources currently utilized None * Please name any agencies selected above. NA * Additional services required to return to the preadmission environment? No * Can the patient safely return to the preadmission environment? Yes * Has this patient been hospitalized within the prior 30 days at any hospital? No Last DP export: 10/30/19 10:41 am Patient Name: SALLY SALGUERO Page 71871 at 1148 All edits/amendments must be made on the electronic document DICTATION DATE: 10/30/19 1147 FURNITURE SHAMPOOER: ELIZABET 10/30/19 1147 RPT#: [id number] DC DATE: STATUS: ADM IN [facility] [address] [place] [address] END OF REPORT
--- NOTE | 2019-10-30 12:44 | NUR ---
DC GIVEN TO PT
--- NOTE | 2019-10-30 12:50 | NUR ---
DC HOME PER PERSONAL CAR
--- NOTE | 2019-11-02 11:53 | MORECARE ---
CASE MANAGEMENT DISCHARGE SUMMARY PATIENT: SALLY SALGUERO UNIT: [id number] ADM DATE: 10/29/19 AGE: 39 : 78 SEX: M ROOM/BED: D.2102 AUTHOR: ADAMARIS,DOC PHYSICIAN: REFERRING PHYSICIAN: LEOPOLDO COVARRUBIAS MD DATE OF SERVICE: 11/02/19 Discharge Plan Patient Name: SALLY SALGUERO Facility: [facility]:[place] : 1980 Planned Disposition: Home Anticipated Discharge Date: 10/30/19 Discharge Date: 10/30/2019 Expected LOS: 1 Initial Reviewer: [email or web address] Initial Review Date: 10/29/2019 Generated: 11/02/19 12:52 pm Comments DCP- Discharge Planning Updated by [email or web address]: Libia Pimentel on 10/30/19 10:[address] CM contacted Andre with [employer] in regards to insurance application for Medicaid services. CM will provide a Glucometer, strips, lancet, Metformin 2000 mg BID ([facility])and Insulin. CM met with patient regarding DC needs/plans. Patient is alert/oriented, in agreement to interview. PCP: Dr. Velazco. Pharmacy: [facility] DME: None. Declines HHS, Rehab, SNF. Patient states he has "a bunch of steps w/rails going into his home". Patient lives with his , Karma and 2 children, #[phone]. Patient's brother will drive him home. Instructed patient to stop by [facility] to car pick up driver his Metformin (CM supply) and CM will provide patient with a glucometer, strips, lancets. Patient voices no other needs at this time. DCP- Discharge Planning Updated by [email or web address]: Libia Pimentel on 10/29/19 7:[address] Contacted Nicholas with [employer] regarding patient's insurance status. DCPIA - Discharge Planning Initial Assessment Updated by [email or web address]: Libia Pimentel on 10/30/19 11:45 am * Is the patient Alert and Oriented? Yes * How many steps to enter\\exit or inside your home? "a bunch" * PCP Dr. Velazco * Pharmacy [facility] * Preadmission Environment Home with Family * Equipment None * Other Equipment Patient needs a glucometer, strips, lancets * List name and contact numbers for known caregivers / representatives who currently or will assist patient after discharge: Karma Salguero #[phone] * Verbal permission to speak to the caregivers and representatives has been obtained from the patient. N/A * Community resources currently utilized None * Please name any agencies selected above. NA * Additional services required to return to the preadmission environment? No * Can the patient safely return to the preadmission environment? Yes * Has this patient been hospitalized within the prior 30 days at any hospital? No Last DP export: 10/30/19 10:48 am Patient Name: SALLY SALGUERO Page 51160 at 1153 All edits/amendments must be made on the electronic document DICTATION DATE: 11/02/19 1152 REMOTE RECRUITER: ELIZABET 11/02/19 1152 RPT#: [id number] DC DATE:10/30/19 STATUS: DIS IN [facility] [address] [place] [address] END OF REPORT
== END 2019-10-30 12:51 | disposition home or self-care (01) | DRG 638 ==
LOC: D.ER 21:50 → D.M2 10-29 01:41 → OBSVTIME 10-29 01:41 → D.M2 10-29 08:38
PROVIDERS: Family Medicine; ADMIT Internal Medicine Nephrology; ATTEND Internal Medicine Nephrology
DX: E11.65 Type 2 diabetes mellitus with hyperglycemia (principal); E87.1 Hypo-osmolality and hyponatremia; F17.203 Nicotine dependence unspecified, with withdrawal; E11.40 Type 2 diabetes mellitus with diabetic neuropathy, unspecified; D64.9 Anemia, unspecified; E83.42 Hypomagnesemia; I10 Essential (primary) hypertension; E78.5 Hyperlipidemia, unspecified; G47.00 Insomnia, unspecified; Z91.19 Patient's noncompliance with other medical treatment and regimen; K21.9 Gastro-esophageal reflux disease without esophagitis; F41.9 Anxiety disorder, unspecified

== ENCOUNTER 2019-12-02 07:24 | Emergency (ER) | payer SELFPAY ==
[~2019-12-02] VITALS: Ht 157.5 cm; Wt 68.2 kg
[~2019-12-02 07:24] MED LIST changes: +BASAGLAR K100 UNIT/1 SC
[2019-12-02 07:29] VITALS: Ht 157.5 cm; Wt 68.2 kg
[2019-12-02] MEDS ORDERED: LEVEMIR IN100 UNITS/ SC (07:33)
[2019-12-02] MEDS ORDERED: LYRICA75 MG PO ×2 (08:01→21:42)
[2019-12-02 08:24] LABS: CALC OSMOLALITY 277 mosm/kg (275-300); CALCIUM 8.8 mg/dL (8.5-10.1); CARBON DIOXIDE 22.4 mmol/L (21.0-32.0); CHLORIDE - SERUM 98 mmol/L (98-107); CREATININE - SERUM 0.9 mg/dL (0.6-1.3); GLUCOSE 218 mg/dL (74-106); POTASSIUM - SERUM 4.2 mmol/L (3.5-5.1); SODIUM 136 mmol/L (136-145); UREA NITROGEN 11 mg/dL (7-18); eGFR NON AFRICAN AMERICAN > 90 mL/min (90-120)
[2019-12-02 08:26] LABS: ALKALINE PHOSPHATASE 67 U/L (30-120); ALT (SGPT) 24 U/L (10-68); BILIRUBIN - TOTAL 0.22 mg/dL (0.2-1.3); PROTEIN - SERUM 7.7 g/dL (6.4-8.2)
[2019-12-02 08:42] LABS: BASOPHILS 0.7 % (0-2); EOSINOPHILS 1.5 % (0-7); HEMATOCRIT 39.2 % (42.0-54.0); HEMOGLOBIN 13.7 g/dL (13.5-17.5); IMMATURE GRANULOCYTES 0.3 % (0-5); LYMPHOCYTES 45.1 % (15-50); MCH 34.8 pg (26.0-34.0); MCHC 34.9 g/dL (31.0-37.0); MCV 99.5 fL (80.0-100.0); MEAN PLATELET VOLUME 10.3 fL (7.4-10.4); MONOCYTES 5.7 % (2-11); NEUTROPHILS 46.7 % (40-80); PLATELET COUNT 216 10x3/uL (130-400); RBC 3.94 10x6/uL (4.20-6.10); RDW 13.6 % (11.5-14.5); WBC 6.7 10x3/uL (4.8-10.8)
[2019-12-02 09:38] VITALS: BP 128/78
== END 2019-12-02 09:38 | disposition home or self-care (01) ==
LOC: D.ER 07:24
PROVIDERS: Emergency Medicine
DX: E11.40 Type 2 diabetes mellitus with diabetic neuropathy, unspecified (principal); E11.65 Type 2 diabetes mellitus with hyperglycemia; Z79.4 Long term (current) use of insulin; I10 Essential (primary) hypertension; Z72.0 Tobacco use; M79.605 Pain in left leg; M79.604 Pain in right leg

== ENCOUNTER 2019-12-02 20:52 | Emergency (ER) | payer SELFPAY ==
[~2019-12-02] VITALS: Ht 157.5 cm; Wt 56.8 kg
[2019-12-02 07:29] VITALS: Ht 157.5 cm; Wt 56.8 kg
[~2019-12-02 20:52] MED LIST changes: +LEVEMIR IN100 UNITS/ SC; +LYRICA75 MG PO
[2019-12-02] MEDS ORDERED: LYRICA75 MG PO (21:42)
[2019-12-02 22:09] VITALS: BP 160/85
== END 2019-12-02 22:09 | disposition home or self-care (01) ==
LOC: D.ER 20:52
DX: G62.9 Polyneuropathy, unspecified (principal); M79.605 Pain in left leg; M79.604 Pain in right leg; E11.40 Type 2 diabetes mellitus with diabetic neuropathy, unspecified; I10 Essential (primary) hypertension; Z72.0 Tobacco use; Z79.84 Long term (current) use of oral hypoglycemic drugs

== ENCOUNTER 2019-12-10 19:52 | Emergency (ER) | payer MEDICAID ==
[~2019-12-10] VITALS: Ht 157.5 cm; Wt 50.0 kg
[2019-12-10 19:54] VITALS: Ht 157.5 cm; Wt 50.0 kg
[2019-12-10] MEDS ORDERED: LYRICA75 MG PO (20:23)
[2019-12-10 21:19] VITALS: BP 135/95
== END 2019-12-10 21:19 | disposition home or self-care (01) ==
LOC: D.ER 19:52
DX: E11.40 Type 2 diabetes mellitus with diabetic neuropathy, unspecified (principal); I10 Essential (primary) hypertension; M79.605 Pain in left leg; M79.604 Pain in right leg; Z79.84 Long term (current) use of oral hypoglycemic drugs

== ENCOUNTER 2020-02-02 19:44 | Emergency (ER) | payer MEDICAID ==
[~2020-02-02] VITALS: Ht 157.5 cm; Wt 63.6 kg
[2020-02-02 19:59] VITALS: BP 113/83; Ht 157.5 cm; Wt 63.6 kg
[2020-02-02] MEDS ORDERED: MUPIROCIN22 GM TOPICAL (20:24)
== END 2020-02-02 21:17 | disposition home or self-care (01) ==
LOC: D.ER 19:44
DX: H66.41 Suppurative otitis media, unspecified, right ear (principal); E11.40 Type 2 diabetes mellitus with diabetic neuropathy, unspecified; I10 Essential (primary) hypertension; E78.5 Hyperlipidemia, unspecified; Z79.4 Long term (current) use of insulin; Z72.0 Tobacco use; R51 Headache

== ENCOUNTER 2020-02-24 09:20 | Inpatient (IN) | payer MEDICAID ==
[~2020-02-24] VITALS: Ht 157.5 cm; Wt 61.2 kg
[2020-02-24] VITALS (8 sets, daily range): BP systolic 135–148; BP diastolic 80–104
[~2020-02-24 09:20] MED LIST changes: +MUPIROCIN22 GM TOPICAL
[2020-02-24 10:19] LABS: BASOPHILS 0.2 % (0-2); EOSINOPHILS 0.7 % (0-7); HEMATOCRIT 36.3 % (42.0-54.0); HEMOGLOBIN 12.5 g/dL (13.5-17.5); IMMATURE GRANULOCYTES 0.3 % (0-5); LYMPHOCYTES 17.3 % (15-50); MCHC 34.4 g/dL (31.0-37.0); MCV 95.8 fL (80.0-100.0); MEAN PLATELET VOLUME 9.2 fL (7.4-10.4); MONOCYTES 6.1 % (2-11); NEUTROPHILS 75.4 % (40-80); PLATELET COUNT 259 10x3/uL (130-400); RBC 3.79 10x6/uL (4.20-6.10); RDW 11.7 % (11.5-14.5); WBC 13.8 10x3/uL (4.8-10.8)
[2020-02-24 10:28] LABS: CALC OSMOLALITY 269 mosm/kg (275-300); CARBON DIOXIDE 20.4 mmol/L (21.0-32.0); CHLORIDE - SERUM 96 mmol/L (98-107); CREATININE - SERUM 0.9 mg/dL (0.6-1.3); GLUCOSE 158 mg/dL (74-106); POTASSIUM - SERUM 4.2 mmol/L (3.5-5.1); SODIUM 134 mmol/L (136-145); UREA NITROGEN 10 mg/dL (7-18); eGFR NON AFRICAN AMERICAN > 90 mL/min (90-120)
[2020-02-24 10:29] LABS: APTT 25.8 SECONDS (22.8-39.4); INR 0.96 (0.85-1.17); PROTIME 12.8 SECONDS (11.6-15.0)
[2020-02-24 10:45] LABS: ALBUMIN 3.8 g/dL (3.4-5.0); ALKALINE PHOSPHATASE 82 U/L (30-120); ALT (SGPT) 35 U/L (10-68); BILIRUBIN - TOTAL 0.52 mg/dL (0.2-1.3); CKMB 2.6 U/L (0.0-3.6); CREATINE KINASE 136 UL (21-232); MAGNESIUM - SERUM 1.4 mg/dL (1.8-2.4); PROTEIN - SERUM 7.8 g/dL (6.4-8.2); TROPONIN-I 0.038 ng/mL (0.000-0.060)
--- NOTE | 2020-02-24 11:23 | NUR ---
URINE COLLECETED AND SENT TO LAB.
[2020-02-24 11:36] LABS: BILIRUBIN NEGATIVE (NEGATIVE); KETONE NEGATIVE (NEGATIVE); NITRITE NEGATIVE (NEGATIVE); UROBILINOGEN NORMAL (NORMAL)
[2020-02-24 11:39] LABS: BACTERIA FEW /hpf (NONE SEEN); EPITHELIAL CELLS 0-5 /hpf (0-5); RED CELLS - URINE 0-5 /hpf (0-5); WHITE CELLS - URINE 0-5 /hpf (0-5)
[2020-02-24 11:43] LABS: UDS - AMPHET NEGATIVE QUAL (NEGATIVE); UDS - BARB NEGATIVE QUAL (NEGATIVE); UDS - BENZO NEGATIVE QUAL (NEGATIVE); UDS - COCAINE NEGATIVE QUAL (NEGATIVE); UDS - OPIATE NEGATIVE QUAL (NEGATIVE); UDS - PCP NEGATIVE QUAL (NEGATIVE); UDS - THC POSITIVE QUAL (NEGATIVE)
[2020-02-24 12:21] LABS: AMYLASE - SERUM 66 U/L (25-115)
[2020-02-24 12:29] LABS: LIPASE 33 U/L (73-393)
[2020-02-24 15:15] LABS: CKMB 1.9 U/L (0.0-3.6); CREATINE KINASE 141 UL (21-232); TROPONIN-I 0.037 ng/mL (0.000-0.060)
--- NOTE | 2020-02-24 18:15 | NUR ---
PT ARRIVED TO ROOM 2113 VIA WHEELCHAIR, PT ORIENTED TO ROOM AND SURROUNDINGS, ADMIT DONE, PT ANSWERED ALL QUESTIONS, PT DENIES NEEDS AT THIS TIME, HOOKED PT TO TELE SR 91, IV INFUSING MAGNESIUM AT THIS TIME, CALL LIGHT IN REACH, BED LOW AND LOCKED, WILL MONITOR
[2020-02-25 06:36] LABS: BASOPHILS 0.1 % (0-2); EOSINOPHILS 0.7 % (0-7); HEMOGLOBIN 11.6 g/dL (13.5-17.5); IMMATURE GRANULOCYTES 0.2 % (0-5); LYMPHOCYTES 17.6 % (15-50); MCH 32.9 pg (26.0-34.0); MCHC 34.1 g/dL (31.0-37.0); MCV 96.3 fL (80.0-100.0); MEAN PLATELET VOLUME 9.9 fL (7.4-10.4); MONOCYTES 6.6 % (2-11); NEUTROPHILS 74.8 % (40-80); PLATELET COUNT 259 10x3/uL (130-400); RBC 3.53 10x6/uL (4.20-6.10); RDW 11.4 % (11.5-14.5); WBC 15.4 10x3/uL (4.8-10.8)
[2020-02-25 06:37] LABS: ALBUMIN 3.3 g/dL (3.4-5.0); ALKALINE PHOSPHATASE 72 U/L (30-120); ALT (SGPT) 26 U/L (10-68); BILIRUBIN - TOTAL 0.74 mg/dL (0.2-1.3); CALC OSMOLALITY 257 mosm/kg (275-300); CALCIUM 8.2 mg/dL (8.5-10.1); CARBON DIOXIDE 28.2 mmol/L (21.0-32.0); CHLORIDE - SERUM 95 mmol/L (98-107); CKMB 1.5 U/L (0.0-3.6); CREATINE KINASE 106 UL (21-232); GLUCOSE 84 mg/dL (74-106); MAGNESIUM - SERUM 2.3 mg/dL (1.8-2.4); PHOSPHOROUS 3.8 mg/dL (2.5-4.9); POTASSIUM - SERUM 3.8 mmol/L (3.5-5.1); SODIUM 130 mmol/L (136-145); TROPONIN-I 0.031 ng/mL (0.000-0.060); UREA NITROGEN 8 mg/dL (7-18); eGFR NON AFRICAN AMERICAN 88 mL/min (90-120)
--- NOTE | 2020-02-25 07:18 | NUR ---
PT ASKING FOR SCRUB PANTS. CALLED [facility] AND THEY STATED THEY WILL BRING SOME. I VERBALIZED UNDERSTANDING.
[2020-02-25 09:32] VITALS: BP 141/82
--- NOTE | 2020-02-25 10:31 | NUR ---
LEFT HAND IV OUT WITH CATH INTACT. RIGHT AC 20G IV INTACT AND FLUSHES WELL.
[2020-02-25 11:18] VITALS: Ht 157.5 cm; Wt 61.2 kg
[2020-02-25 13:55] VITALS: BP 126/82
--- NOTE | 2020-02-25 14:22 | NUR ---
PT TAKEN FOR EGD VIA BED.
--- NOTE | 2020-02-25 18:01 | NUR ---
I have reviewed this patient and I concur with the Shift Assessment completed by the Licensed Practical Nurse today this shift.
[2020-02-25 18:10] VITALS: BP 145/87
[2020-02-25 20:00] VITALS: BP 134/75
[2020-02-26] VITALS: BP 137/89
[2020-02-26 04:00] VITALS: BP 146/96
[2020-02-26 06:30] LABS: BASOPHILS 0.3 % (0-2); HEMATOCRIT 37.9 % (42.0-54.0); HEMOGLOBIN 12.8 g/dL (13.5-17.5); IMMATURE GRANULOCYTES 0.2 % (0-5); LYMPHOCYTES 17.9 % (15-50); MCH 32.9 pg (26.0-34.0); MCHC 33.8 g/dL (31.0-37.0); MCV 97.4 fL (80.0-100.0); MONOCYTES 5.4 % (2-11); NEUTROPHILS 75.2 % (40-80); PLATELET COUNT 237 10x3/uL (130-400); RBC 3.89 10x6/uL (4.20-6.10); RDW 11.5 % (11.5-14.5); WBC 13.2 10x3/uL (4.8-10.8)
[2020-02-26 06:36] LABS: CALC OSMOLALITY 265 mosm/kg (275-300); CALCIUM 8.3 mg/dL (8.5-10.1); CARBON DIOXIDE 26.5 mmol/L (21.0-32.0); CHLORIDE - SERUM 100 mmol/L (98-107); CREATININE - SERUM 0.9 mg/dL (0.6-1.3); GLUCOSE 86 mg/dL (74-106); PHOSPHOROUS 3.4 mg/dL (2.5-4.9); POTASSIUM - SERUM 3.9 mmol/L (3.5-5.1); SODIUM 135 mmol/L (136-145); eGFR NON AFRICAN AMERICAN > 90 mL/min (90-120)
[2020-02-26 06:41] LABS: UREA NITROGEN 5 mg/dL (7-18)
[2020-02-26 10:01] VITALS: BP 136/94
[2020-02-26] MEDS ORDERED: PROTONIX40 MG PO ×2 (10:13→10:15)
[2020-02-26] MEDS ORDERED: CARAFATE1 G/10 ML PO (10:17)
--- NOTE | 2020-02-26 11:47 | NUR ---
PT DISCHARGED HOME. PT REFUSED TO RIDE IN WHEELCHAIR AND CHOSE TO AMBULATE. PIV REMOVED WITH CATHETER TIP FULLY INTACT. PT SIGNED PROPER DISCHARGE INSTRUCTIONS AND REMOVED ALL VALUABLES FROM THE ROOM. TELEMETRY REMOVED AND RETURNED.
== END 2020-02-26 11:48 | disposition home or self-care (01) | DRG 381 ==
LOC: D.ER 09:20 → D.M2 16:39
PROVIDERS: Family Medicine; Internal Medicine Gastroenterology; ADMIT Family Medicine; ATTEND Family Medicine
PROC: 0DB68ZX Excision of Stomach, Via Natural or Artificial Opening Endoscopic, Diagnostic (ICD-10-PCS; 2020-02-25)
PROC: 0DB48ZX Excision of Esophagogastric Junction, Via Natural or Artificial Opening Endoscopic, Diagnostic (ICD-10-PCS; principal; 2020-02-25 15:00)
DX: K22.11 Ulcer of esophagus with bleeding (principal); F17.203 Nicotine dependence unspecified, with withdrawal; E83.42 Hypomagnesemia; N40.0 Benign prostatic hyperplasia without lower urinary tract symptoms; K21.9 Gastro-esophageal reflux disease without esophagitis; D64.9 Anemia, unspecified; E78.5 Hyperlipidemia, unspecified; E11.40 Type 2 diabetes mellitus with diabetic neuropathy, unspecified; F10.20 Alcohol dependence, uncomplicated; K21.0 Gastro-esophageal reflux disease with esophagitis; K29.70 Gastritis, unspecified, without bleeding; K44.9 Diaphragmatic hernia without obstruction or gangrene; K29.80 Duodenitis without bleeding

== ENCOUNTER 2020-03-06 22:32 | Observation (INO) | payer MEDICAID ==
[~2020-03-06] VITALS: Ht 152.4 cm; Wt 63.6 kg
--- NOTE | ~2020-03-06 | OP ---
PATIENT NAME: SHANA SALGUERO MEDICAL RECORD: [id number] :78 LOCATION:D.M2 D.2118 ADMISSION DATE:03/07/20 SURGEON: JUSTINE REINA MD DATE OF OPERATION: 03/07/2020 PROCEDURE: Left heart catheterization, selective coronary angiography, right femoral artery approach. CATHETERS: A 5-Australian sheath, 5/4 left and right [place], 5/4 pig. The procedure was well tolerated. The patient returned to the [facility]. Sheath removed. ExoSeal device placed. FINDINGS: Left ventriculography in 30-degree CEHN view: Normal wall motion, normal systolic function. CORONARY ANATOMY: LEFT MAIN: Free of disease. LAD: Free of disease in the diagonal system. CIRCUMFLEX: Free of disease in the marginal system. RIGHT CORONARY ARTERY: Dominant artery, gives rise to PDA, free of disease. IMPRESSION: Normal LV systolic function, normal coronary anatomy. NTS:[id number] Voice Confirmation ID: [id number] DOCUMENT ID: [id number] JUSTINE REINA MD CC: [id number] DICTATION DATE: 03/10/20 1254 LYE BATH OPERATOR: 03/10/20 1752 DIS IN 03/07/[address] [facility] [address] [place] [id number]
--- NOTE | ~2020-03-06 | CN ---
PATIENT NAME:SHANA SALGUERO MEDICAL RECORD: [id number] : 78 LOCATION:[facility] D.2118 ADMIT DATE: 03/07/20 ACCOUNT: [id number] CONSULTING PHYSICIAN: JUSTINE REINA MD REFERRING PHYSICIAN: ZACK WEBBER MD DATE OF CONSULTATION: 03/07/2020 HISTORY OF PRESENT ILLNESS: A 39-year-old gentleman with history of diabetes mellitus as well as hypertension, recently seen by GI for intermittent chest pain, somewhat atypical from a cardiovascular standpoint and was found to have duodenitis and gastritis, pain has been intermittent since starting medications for GI symptomatology, presented this admission, found to have elevated cardiac enzymes consistent with NSTEMI. We are asked to see him concerning his cardiovascular status. PAST MEDICAL HISTORY: Includes; 1. History of hypertension. 2. Gastritis, duodenitis. 3. Diabetes mellitus. SOCIAL HISTORY: Smokes less than a pack a day. Occasional marijuana use. No set exercise program. Easily able to take care of all his ADLs. ALLERGIES: NITROGLYCERIN. REVIEW OF SYSTEMS: The patient reports easy bruising but reports no swollen glands. The patient reports no fever, no night sweats, no significant weight gain, no significant weight loss. No significant exercise tolerance. The patient reports no dry eyes, no irritation, no vision change. Patient reports no difficulty hearing and no ear pain. Patient reports no frequent nose bleeds or nose and sinus problems. Patient reports on arm pain on exertion. No shortness of breath while lying down. No history of heart murmur. Patient reports no cough, no wheezing or coughing up blood. Patient reports no abdominal pain, no vomiting. Normal appetite. No diarrhea and not vomiting blood. No nausea and no constipation. Patient reports no incontinence. No difficulty urinating. No hematuria. No increased frequency. Patient reports no muscle aches. No weakness, no arthralgias, no back pain. No swelling of the extremities. Patient reports no abnormal mole, no jaundice, no rashes. Reports no loss of consciousness. No weakness and no numbness. No seizures, dizziness, or headaches. The patient reports no depression, no sleep disturbance, feeling safe in a relationship and no alcohol abuse. Patient reports on fatigue. Reports no runny nose or sinus pressure. No itching, no hives, and no frequent sneezing. PHYSICAL EXAMINATION: GENERAL: Well-developed, well nourished, in no acute distress, appears stated age. VITAL SIGNS: Blood pressure 140/86, pulse 87 and regular. HEENT: Normocephalic, atraumatic. NECK: No JVD or bruit. HEART: Regular. A II/ systolic ejection murmur. LUNGS: Good air excursion. ABDOMEN: Soft, nontender. EXTREMITIES: Pulses 2+. No edema. CONSULT REPORT [id number] SHANA SALGUERO DIAGNOSTIC DATA: EKG shows LVH, lateral ST-T segment changes. IMPRESSION: Non-ST elevation myocardial infarction. PLAN: We will plan for diagnostic angiography, intervention based on the above. TRANSINT:[id number] Voice Confirmation ID: [id number] DOCUMENT ID: [id number] JUSTINE REINA MD CC: [id number] DICTATION DATE: 03/07/20903 CREEL CLERK: 03/07/20 1641 DIS IN 03/07/[address] [facility] [address] [place] [address]
--- NOTE | ~2020-03-06 | HEMODYNAMI ---
PATIENT:SHANA SALGUERO MEDICAL RECORD: [id number] : 78 LOCATION[facility] D.2118 [id number] ADMISSION DATE: 03/07/20 Generatedon:03/07/202010:49 Patient name: SHANA SALGUERO Patient #: [id number] : 1980 Date of study: 03/07/2020 Page: Of Hemodynamic Procedure Report Patient Data Patient Demographics Procedure consent was obtained First Name: SHANA Gender: Male Last Name: NOEMY : 1980 [facility] Initial: YOVANNY Age: 39 year(s) Patient #: [id number] Race: Black SSN: [id number] Additional ID: [id number] Contact details Address: [address] [place] [address] State: [place] City: [facility] Zip code: [address] Past Medical History Allergies Allergen Reaction Date Comments Reported Other allergy 03/07/2020 Nitro Admission Admission Data Admission Date: 03/07/2020 Admission Time: 3:43 Admit Source: Emergency Insurance Payor: Private department health insurance Room #: D.2118 [facility] #: [id number] Height (in.): 59.84 BSA: 1.6 (m2) Height (cm.): 152 BMI: 27.27 (kg/m2) Weight (lbs.): 138.89 Weight (kg.): 63 Lab Results Lab Result Date: 03/07/2020 Lab Result Time: 3:54 Biochemistry Name Units Result Min Max BUN mg/dl 9 --(*---)-- 7 18 Creatinine mg/dl 1.1 --(--*-)-- 0.6 1.3 eGFR ml/min 90 --(*---)-- 90 120 AM CBC Name Units Result Min Max Hematocrit % 35.6 *-(----)-- 42 54 Hemoglobin g/dl 12.3 *-(----)-- 13.5 17.5 Procedure Procedure Types Cath Procedure Diagnostic Procedure [facility] w/Coronaries Sedation Charges Moderate Sedation up to 15 minutes Procedure Description Procedure Date Procedure Date: 03/07/2020 Procedure Start Time: 10:38 Procedure End Time: 10:45 Procedure Staff Name Function Devin Bacon MD Performing Physician Dalila Haro RT Monitor Elie Hubbard RT Scrub Debby Agrawal RN Nurse Indication Chest pain Procedure Data Cath Procedure Fluoroscopy Diagnostic fluoroscopy Total fluoroscopy Time: 1 time: 1 min min Diagnostic fluoroscopy Total fluoroscopy dose: 187 dose: 187 mGy mGy Contrast Material Contrast Material Type Amount (ml) Isovue 300 50 Entry Location Entry Primary Successful Side Size Upsize Upsize Entry Closure Succes sful Closure Location (Fr) 1 (Fr) 2 (Fr) Remarks Device Remarks Femoral Right 5 Fr Exoseal artery Estimated blood loss: 5 ml Diagnostic catheters Device Type Used For End Catheter Placement MULTIPACK JL 4.0 5Fr Procedure catheter MULTIPACK 3DRC 5Fr Procedure catheter MULTIPACK Pigtail 5 Fr Procedure catheter Procedure Complications No complications Procedure Medications Medication Administration Route Dosage Oxygen etCO2 Nasal cannula 2 l/min Heparin Flush Bag added to field 2 bags (1000units/500ml NS) Lidocaine 2% added to field 20 0.9% NaCl I.V. 100 ml/hr Fentanyl I.V. 50 mcg Versed I.V. 1 mg Fentanyl I.V. 25 mcg Versed I.V. 0.5 mg Hemodynamics Rest BSA: 1.6 (m2) HGB: 12.3 (g/dl) O2 Consumption: Estimated: 206.68 (ml/min) O2 Con sumption indexed: Estimated:129.17 (ml/min/m) Heart Rate: 89 (bpm) Pressure Samples Time Site Value (mmHg) Purpose Heart Use Rate(bpm) 10:43 LV 127/-7,-1 Snapshot 90 Gradients Valve Time Site Site Mean SEP/DFP Peak To Heart Use 1 2 (mmHg) (sec/min) Peak Rate (mmHg) (bpm) Aortic 10:43 LV AO 82 Snapshots Pre Cath Intra NCS Post Cath Vital Signs Time Heart Resp SPO2 etCO2 NIBP (mmHg) Rhythm Pain Sedation Rate (ipm) (%) (mmHg) Status Level (bpm) 10:19:05 85 15 100 0 163/103(131) NSR 0 (11) 10(A) , No pain 10:22:57 82 16 100 0 170/110(137) NSR 0 (11) 10(A) , No pain 10:33:32 91 16 100 0 156/104(127) NSR 0 (11) 10(A) , No pain 10:37:46 89 18 100 0 143/99(122) NSR 0 (11) 10(A) , No pain 10:41:56 91 16 100 0 136/95(116) NSR 0 (11) 9(A) , No pain 10:46:04 98 15 100 0 143/94(117) NSR 0 (11) 9(A) , No pain Medications Time Medication Route Dose Verified Delivered Reason Notes Eff ectiveness by by 10:14:51 Oxygen etCO2 2 Debby Debby for low 02 Nasal l/min Nghia Agrawal sats cannula RN RN 10:15:00 Heparin Flush added 2 Debby Debby used for Bag to bags Nghia Agrawal procedure (1000units/500ml field RN RN NS) 10:15:10 Lidocaine 2% added 20ml Debby Devin for local to vial St Khalif Agrawal anesthetic field JOSE M MCWILLIAMS 10:15:22 0.9% NaCl I.V. 100 Debby Debby Per ml/hr Nghia Agrawal, physician RN RN 10:37:33 Fentanyl I.V. 50 Debby Debby for mcg Elizabeth Agrawalkins, sedation RN RN 10:37:39 Versed I.V. 1 mg Debby Debby for Agrawal, Agrawal, sedation RN RN 10:41:18 Fentanyl I.V. 25 Debby Debby for mcg Agrawal, Agrawal, sedation RN RN 10:41:22 Versed I.V. 0.5 Debby Debby for mg Nghia, Agrawal, sedation RN learning solutions specialist Log Time Note 9:50:00 Dalila Haro RT(R) sent for patient. Start room use. 9:56:44 Informed consent obtained and on chart 10:03:55 Indication : Chest pain 10:05:45 Lab Result : BUN 9 mg/dl 10:05:45 Lab Result : Hematocrit 35.6 % 10:05:45 Lab Result : Creatinine 1.1 mg/dl 10:05:45 Lab Result : eGFR AM 90 ml/min 10:05:45 Lab Result : Hemoglobin 12.3 g/dl 10:05:54 ACC Patient presents with Unstable Angina CCS Anginal Class 3--Marked limitation of physical activity, angina occurs with ordinary activity.. 10:05:58 Procedure Status Urgent Heart Cath (IP). 10:06:06 Time tracking: Regular hours (M-F 7:00 - 5:00) 10:06:10 Plan of Care:Hemodynamics will remain stable., Cardiac rhythm will remain stable., Comfort level will be maintained., Respiratory function will remain adequate., Patient/ family verbilizes understanding of procedure., Procedure tolerated without complication., Recovers from procedure without complications.. 10:06:14 Patient received from Med II to CCL 2 Alert and oriented. Tansferred to table in Supine position. 10:06:18 Warm blankets applied, and andrea hugger turned on for patient comfort. 10:06:19 Correct patient and procedure confirmed by team. 10:06:19 ECG and BP/O2 sat monitors applied to patient. 10:06:25 H&P Date Dictated: 03/07/2020 Within 30 days and on chart.. 10:06:27 Pre-procedure instructions explained to patient. 10:06:27 Pre-op teaching completed and patient verbalized understanding. 10:06:28 Family in waiting room. 10:06:29 Patient NPO since Midnight. 10:06:37 Patient allergic to Other allergyNitro 10:06:39 Is the patient allergic to Iodine/contrast media? No. 10:06:40 Is patient on blood thinner?No 10:06:44 Patient diabetic? Yes. 10:06:45 If diabetic: On Metformin? Yes 10:14:51 Oxygen 2 l/min etCO2 Nasal cannula was administered by Debby Agrawal RN; for low 02 sats; Verbal order read back and verified. 10:15:00 Heparin Flush Bag (1000units/500ml NS) 2 bags added to field was administered by Debby Agrawal RN; used for procedure; Verbal order read back and verified. 10:15:10 Lidocaine 2% 20ml vial added to field was administered by Devin Bacon MD; for local anesthetic; Verbal order read back and verified. 10:15:22 0.9% NaCl 100 ml/hr I.V. was administered by Debby Agrawal RN; Per physician; Verbal order read back and verified. 10:16:27 If on Metformin: Last Dose? 02/29/2020 10:16:30 Previous problem with sedation/anesthesia? No ? 10:16:33 Snore? Yes 10:16:34 Sleep apnea? No 10:16:36 Deviated septum? No 10:17:00 Opens mouth fully? Yes 10:17:01 Sticks out tongue? Yes 10:17:03 Airway obstruction? No ? 10:17:05 Dentures? No ? 10:17:08 Pre procedure: right dorsailis pedis pulse 2+ Normal; easily identifiable; not easily obliterated 10:17:38 Patient pain scale 10/10 throat and chest pain. 10:17:50 IV patent on arrival in left forearm with 0.9% NaCl at [facility]. 10:17:52 Lab results completed and on chart. 10:17:57 Right groin area was prepped with chlora-prep and draped in sterile fashion 10:17:58 Alarms reviewed by R. N. 10:17:58 Sharps counted by scrub and verified by R.N. 10:18:00 Use device set Femoral Dx 10:18:01 ACIST Syringe (59209) opened to sterile field. 10:18:02 Bag Decanter (2002S) opened to sterile field. 10:18:02 Medline Cath Pack (YQVR00070) opened to sterile field. 10:18:03 ACIST Hand Control (11505) opened to sterile field. 10:18:04 ACIST Manifold (22924) opened to sterile field. 10:18:04 DIAGNOSTIC Multipack 5Fr catheter set (YD1392) opened to sterile field. 10:18:06 SHEATH 5FR Thoreau (GJH028) opened to sterile field. 10:18:06 EMERALD Guide Wire (993-469) opened to sterile field. 10:18:07 Tegaderm 4 x 4 (1626W) opened to sterile field. 10:18:22 Baseline sample Acquired. 10:18:22 Vital chart was started 10:18:26 Rhythm: sinus rhythm 10:18:27 Full Disclosure recording started 10::28 Insurance Payor : Private health insurance 10:26:45 Admit Source: Emergency department 10:27:05 Patient Height : 59.84 inches 10:27:08 Patient Weight : 138.89 lbs 10:31:40 Zero performed for pressure channel P1 10:33:08 Zero performed for pressure channel P1 10:36:52 Physician arrived 10::52 --------ALL STOP TIME OUT------ 10:36:52 Final Timeout: patient, procedure, and site verified with staff and physician. All members of the team are in agreement. 10:36:54 Right groin site verified by team. 10:36:56 Fire Safety Assessment: A--An alcohol-based skin anteseptic being used preoperatively., C--Open oxygen or nitrous oxide is being used., D--An ESU, laser, or fiber-optic light is being used. 10:36:58 Physical assessment completed. ASA score P 2 - A patient with mild systemic disease as per Devin Bacon MD. 10:37:00 1) 90+ Normal kidney functon but urine findings or structural abnormalities or genetic trait point to kidney disease. 10:37:04 Maximum allowable contrast dose (3.7 X eGFR X 0.75)250 ml. 10:37:07 Sedation plan: IV Moderate Sedation Medication:Versed, Fentanyl 10:37:33 Fentanyl 50 mcg I.V. was administered by Debby Agrawal RN; for sedation; Verbal order read back and verified. 10:37:39 Versed 1 mg I.V. was administered by Debby Agrawal RN; for sedation; Verbal order read back and verified. 10:38:19 Procedure started. 10:38:53 Local anesthetic to right femoral artery with Lidocaine 2% by Devin Bacon MD.INITIAL ACCESS ONLY 10:39:05 A 5 Fr sheath was inserted into the Right Femoral artery 10:40:08 A MULTIPACK JL 4.0 5Fr catheter was advanced over the wire and used for Procedure. 10:40:37 LCA angiography performed. 10:41:18 Fentanyl 25 mcg I.V. was administered by Debby Agrawal RN; for sedation; Verbal order read back and verified. 10:41:22 Versed 0.5 mg I.V. was administered by Debby Agrawal RN; for sedation; Verbal order read back and verified. 10:41:39 Catheter exchanged over wire. 10:41:43 A MULTIPACK 3DRC 5Fr catheter was advanced over the wire and used for Procedure. 10:42:03 RCA angiography performed. 10:42:07 Catheter exchanged over wire. 10:42:11 A MULTIPACK Pigtail 5 Fr catheter was advanced over the wire and used for Procedure. 10:43:01 LV gram done using CHEN 10:43:03 Injector settings: Ml/sec: 10, Volume: 20, 10:43:04 LV hemodynamics recorded. 10:43:08 EF : 55 % 10:43:43 Catheter removed. 10:43:45 EXOSEAL 5Fr (EX500) opened to sterile field. 10:43:52 Sheath removed intact; hemostasis achieved with Exoseal to the Right Femoral artery. 10:43:54 Procedure ended.(Physican Out) 10:44:24 Fluoroscopy time 01.00 minutes. 10:44:31 Flurop Dose total: 187 10:44:31 Fluoroscopy dose: 187 mGy 10:44:35 Dose Area Product 9515 mGy/cm. 10:44:38 Contrast amount:Isovue 300 50ml. 10:44:39 Maximum allowable dose exceeded? No. 10:44:40 Sharps counted by scrub and verified by R.N. 10:44:41 Insertion/operative site no bleeding no hematoma. 10:44:41 Insertion/operative site no bleeding no hematoma. 10:44:43 Post-op/insertion site Right Femoral artery dressed using a 4 x 4 and Tegaderm. 10:44:46 Post right femoral artery:stable, soft, clean and dry 10:44:47 Post Procedure Pulses reassessed and unchanged 10:44:50 Post-procedure physical assessment completed. ASA score P 2 - A patient with mild systemic disease as per Devin Bacon MD. 10:44:52 Post procedure rhythm: unchanged. 10:44:54 Estimated blood loss: 5 ml 10:44:55 Post procedure instruction explained to patient.Patient verbalizes understanding. 10:44:55 Patient needs reinforcement of post procedure teaching. 10:45:04 Procedure type changed to Cath procedure, Diagnostic procedure, LHC, LHC w/Coronaries, Sedation Charges, Moderate Sedation up to 15 minutes 10:45:16 Procedure and supply charges have been captured, reviewed, submitted and are correct. 10:45:19 Procedure Complication : No complications 10:45:21 Vital chart was stopped 10:45:22 Operative report dictated upon procedure completion. 10:45:23 See physician's report for complete and final results. 10:45:24 Report given to PCU. 10:45:27 Patient transfered to PCU with Stretcher. 10:45:28 Procedure ended. 10:45:28 Full Disclosure recording stopped 10:45:34 End room use (Document Last) 10:48:19 End room use (Document Last) 10:48:40 Elie Bardalesyder RT(R) was relieved by Elie Hubbard RT(R) as monitoring person 10:48:40 End room use (Document Last) 10:49:01 End room use (Document Last) 10:49:07 Elie Hubbard RT(R) was relieved by Elie Blackwooder RT(R) as monitoring person 10:49:07 End room use (Document Last) Device Usage Item Name Manufacture Quantity Catalog Hospital Part Current Minimal L ot# / Number Charge Number Stock Stock Serial# Code ACIST Acist 1 24340 925704 640264 006817 20 Syringe Medical (11915) Systems Inc Bag Microtek 1 877222 18061 244386 5 Decanter Medical Inc. () Medline Medline 1 [id number] 079298 55552 536388 5 Cath Pack ([id number]) ACIST Hand Acist 1 56423 293570 670707 657714 5 Control Medical (98140) Systems Inc ACIST Acist 1 56785 503296 048587 888399 5 Manifold Medical (31507) Systems Inc DIAGNOSTIC Cardinal 1 AL6989 042425 34693 972980 30 Multipack Health 5Fr catheter set (GP8526) SHEATH 5FR Terumo 1 PFY023 607203 551655 898701 5 Thoreau (AKQ287) EMERALD Cardinal 1 502-455 891053 083945 537383 5 Guide Wire Health (502-455) Tegaderm 4 3M 1 1626W 454423 445658 172701 5 x 4 (1626W) MULTIPACK Cardinal 1 703396 5 JL 4.0 5Fr Health catheter MULTIPACK Cardinal 1 345760 5 3DRC 5Fr Health catheter MULTIPACK Cardinal 1 607674 5 Pigtail 5 Health Fr catheter EXOSEAL 5Fr Cardinal 1 EX500 217625 587763 191599 10 (EX500) Health Signature Audit [place] Stage Time Signature Unsigned Intra-Procedure 03/07/2020 Elie Hubbard 10:48:19 AM RT(R) Intra-Procedure 03/07/2020 Debby Agrawal, 10:49:01 AM RN Intra-Procedure 03/07/2020 Devin Melvin 10:49:25 AM Khalif Harmon Performing Physician : Signature : Devin Bacon MD Date : Time : Monitor : Dalila Haro RT Signature : Date : Time : Nurse : Debby Agrawal, Signature : RN Date : Time : [place] [address] [place] [address]
[~2020-03-06 22:32] MED LIST changes: +CARAFATE1 G/10 ML PO; +PROTONIX40 MG PO
[2020-03-06 23:07] LABS: BASOPHILS 0.7 % (0-2); EOSINOPHILS 1.3 % (0-7); HEMATOCRIT 35.6 % (42.0-54.0); HEMOGLOBIN 12.3 g/dL (13.5-17.5); IMMATURE GRANULOCYTES 0.1 % (0-5); LYMPHOCYTES 30.7 % (15-50); MCH 33.1 pg (26.0-34.0); MCHC 34.6 g/dL (31.0-37.0); MCV 95.7 fL (80.0-100.0); MONOCYTES 4.9 % (2-11); NEUTROPHILS 62.3 % (40-80); RBC 3.72 10x6/uL (4.20-6.10); RDW 11.7 % (11.5-14.5); WBC 10.5 10x3/uL (4.8-10.8)
[2020-03-06 23:09] LABS: PLATELET COUNT 380 10x3/uL (130-400)
[2020-03-06 23:15] LABS: APTT 29.5 SECONDS (22.8-39.4); INR 1.05 (0.85-1.17); PROTIME 13.6 SECONDS (11.6-15.0)
[2020-03-06 23:16] LABS: CALC OSMOLALITY 269 mosm/kg (275-300); CALCIUM 8.4 mg/dL (8.5-10.1); CARBON DIOXIDE 24.9 mmol/L (21.0-32.0); CHLORIDE - SERUM 92 mmol/L (98-107); CREATININE - SERUM 1.1 mg/dL (0.6-1.3); POTASSIUM - SERUM 4.1 mmol/L (3.5-5.1); SODIUM 130 mmol/L (136-145); UREA NITROGEN 9 mg/dL (7-18); eGFR NON AFRICAN AMERICAN 79 mL/min (90-120)
[2020-03-06 23:17] LABS: GLUCOSE 287 mg/dL (74-106)
[2020-03-06 23:35] VITALS: BP 132/82
[2020-03-06 23:36] LABS: ALBUMIN 3.3 g/dL (3.4-5.0); ALKALINE PHOSPHATASE 90 U/L (30-120); ALT (SGPT) 31 U/L (10-68); CKMB 2.3 U/L (0.0-3.6); CREATINE KINASE 126 UL (21-232); MAGNESIUM - SERUM 1.8 mg/dL (1.8-2.4); PROTEIN - SERUM 7.8 g/dL (6.4-8.2)
--- NOTE | 2020-03-07 00:21 | NUR ---
PT GIVEN MEDICATIONS PER MAR. PT TOLERATES WELL. PT GIVEN CHK BROTH PER REQUEST. PT DENIES NEEDS AT THIS TIME. CALL LIGHT WITHIN REACH.
--- NOTE | 2020-03-07 00:21 | NUR ---
PT GIVEN MEDICATIONS PER [facility]. PT TOLERATES WELL. PT GIVEN CHK BROTH PER REQUEST. PT DENIES OTHER NEEDS AT THIS TIME. CALL LIGHT WITHIN REACH.
--- NOTE | 2020-03-07 01:11 | NUR ---
PT GIVEN MEDICATIONS PER MAR. PT TOLERATES WELL. PT CBG IS 287. PT DENIES NEEDS AT THIS TIME. CALL LIGHT WITHIN REACH.
--- NOTE | 2020-03-07 02:03 | NUR ---
PT COVID SWAB DONE AND TAKEN TO LAB.
[2020-03-07 04:00] VITALS: BP 125/70
[2020-03-07 04:05] LABS: UDS - AMPHET NEGATIVE QUAL (NEGATIVE); UDS - BARB NEGATIVE QUAL (NEGATIVE); UDS - BENZO NEGATIVE QUAL (NEGATIVE); UDS - COCAINE NEGATIVE QUAL (NEGATIVE); UDS - OPIATE NEGATIVE QUAL (NEGATIVE); UDS - PCP NEGATIVE QUAL (NEGATIVE); UDS - THC POSITIVE QUAL (NEGATIVE)
[2020-03-07 05:26] LABS: CREATINE KINASE 114 UL (21-232)
[2020-03-07 05:27] LABS: TROPONIN-I 0.084 ng/mL (0.000-0.060)
--- NOTE | 2020-03-07 05:36 | NUR ---
CBG IS 290.
[2020-03-07 06:31] VITALS: BP 130/49; BP 134/91
--- NOTE | 2020-03-07 06:47 | NUR ---
ATTEMPTED TO CALL REPORT THE FLOOR NURSE IS IN REPORT AND WILL RETURN CALL.
[2020-03-07 07:45] VITALS: Ht 152.4 cm; Wt 63.6 kg
--- NOTE | 2020-03-07 07:50 | NUR ---
RECEIVED PT TO ROOM 2117. PT A/O X4, RESP EVEN AND NONLABORED. LT FA IV SL. ORIENTED PT TO ROOM AND CALL LIGTH. WILL ASSESS PT AND START PLAN OF CARE.
[2020-03-07 08:00] VITALS: BP 140/86
[2020-03-07 09:28] LABS: ALT (SGPT) 28 U/L (10-68); CALC OSMOLALITY 267 mosm/kg (275-300); CALCIUM 7.9 mg/dL (8.5-10.1); CHLORIDE - SERUM 96 mmol/L (98-107); CHOL - HDL RATIO 3.3 ratio (2.3-4.9); CHOLESTEROL, TOTAL 124 mg/dL (0-200); GLUCOSE 254 mg/dL (74-106); HDL CHOLESTEROL 38 mg/dL (32-96); LDL CHOLESTEROL 59 mg/dL (0-100); LDL-HDL RATIO 1.6 ratio (1.5-3.5); POTASSIUM - SERUM 4.1 mmol/L (3.5-5.1); SODIUM 130 mmol/L (136-145); TRIGLYCERIDE 136 mg/dL (30-200); UREA NITROGEN 8 mg/dL (7-18); eGFR NON AFRICAN AMERICAN 88 mL/min (90-120)
[2020-03-07 09:59] LABS: BASOPHILS 0.4 % (0-2); EOSINOPHILS 0.5 % (0-7); HEMATOCRIT 32.4 % (42.0-54.0); HEMOGLOBIN 10.8 g/dL (13.5-17.5); IMMATURE GRANULOCYTES 0.2 % (0-5); LYMPHOCYTES 20.2 % (15-50); MCH 32.4 pg (26.0-34.0); MCHC 33.3 g/dL (31.0-37.0); MCV 97.3 fL (80.0-100.0); MEAN PLATELET VOLUME 9.1 fL (7.4-10.4); NEUTROPHILS 71.7 % (40-80); PLATELET COUNT 377 10x3/uL (130-400); RBC 3.33 10x6/uL (4.20-6.10); RDW 11.9 % (11.5-14.5); WBC 10.1 10x3/uL (4.8-10.8)
--- NOTE | 2020-03-07 11:00 | NUR ---
RECEIVED PT BACK TO ROOM 2117. PT A/O X4, BP A LITTLE HIGH BUT OTHER VITAL SIGNS STALBE. RT GROIN DRESSING CDI, NO S/S OF BLEEDING OR HEMATOMA. PLACED PT ON FREQUENT VITAL SIGNS AND INSTRUCTED PT TO LAY FLAT FOR 2HRS. PT VERBALIZED UNDERSTANDING.
[2020-03-07 11:56] VITALS: BP 140/87
--- NOTE | 2020-03-07 12:25 | NUR ---
NO CHANGES TO RT GROIN, FROM PREVIOUS ASSESSMENT.
--- NOTE | 2020-03-07 15:20 | NUR ---
PROVIDED VERBAL AND WRITTEN DISCHARGE TEACHING TO PT, WHO VERBALIZED UNDERSTANDING REGARDING TEACHING. D/C LT FA IV WITH CATHETER TIP INTACT. HEART MONITOR REMOVED AND TAKEN TO FOOD SERVICE MANAGER. PT LEFT UNIT VIA WHEELCHAIR, WITH ALL BELONGINGS, NAD NOTED.
== END 2020-03-07 15:39 | disposition home or self-care (01) ==
LOC: D.ER 22:32 → OBSVTIME 03-07 03:43 → D.M2 03-07 03:43 → D.EDHOLD 03-07 03:43 → D.M2 03-07 06:28
PROVIDERS: Emergency Medicine; Internal Medicine Interventional Cardiology; ADMIT Family Medicine; ATTEND Family Medicine
DX: I21.4 Non-ST elevation (NSTEMI) myocardial infarction (principal); E11.40 Type 2 diabetes mellitus with diabetic neuropathy, unspecified; I10 Essential (primary) hypertension; K29.80 Duodenitis without bleeding; K29.70 Gastritis, unspecified, without bleeding; E78.5 Hyperlipidemia, unspecified; K21.9 Gastro-esophageal reflux disease without esophagitis; I20.0 Unstable angina; E87.1 Hypo-osmolality and hyponatremia; F17.200 Nicotine dependence, unspecified, uncomplicated; F12.10 Cannabis abuse, uncomplicated; J02.0 Streptococcal pharyngitis; M19.90 Unspecified osteoarthritis, unspecified site; Z79.84 Long term (current) use of oral hypoglycemic drugs; N40.0 Benign prostatic hyperplasia without lower urinary tract symptoms

== ENCOUNTER 2020-08-15 04:37 | Inpatient (IN) | payer MEDICAID ==
[~2020-08-15] VITALS: Ht 154.9 cm; Wt 54.4 kg
[~2020-08-15 04:37] MED LIST changes: +BACTRIM DS TAB1 EAC1 PO; +LISINOPRIL10 MG PO; +NICODERM CQ1 EAC3 TRANSDERM
--- NOTE | 2020-08-15 04:46 | NUR ---
PATIENT LAYING IN BED WITH CALL LIGHT IN REACH. NAD NOTED AND A&OX4.
[2020-08-15 05:20] LABS: BILIRUBIN NEGATIVE (NEGATIVE); KETONE MODERATE mg/dL (NEGATIVE); NITRITE NEGATIVE (NEGATIVE); UROBILINOGEN NORMAL mg/dL (< 2)
[2020-08-15 05:53] LABS: UDS - AMPHET NEGATIVE QUAL (NEGATIVE); UDS - BARB NEGATIVE QUAL (NEGATIVE); UDS - BENZO NEGATIVE QUAL (NEGATIVE); UDS - COCAINE NEGATIVE QUAL (NEGATIVE); UDS - OPIATE NEGATIVE QUAL (NEGATIVE); UDS - PCP NEGATIVE QUAL (NEGATIVE); UDS - THC POSITIVE QUAL (NEGATIVE)
[2020-08-15 06:06] LABS: ALBUMIN 3.8 g/dL (3.4-5.0); ANION GAP 19.9 mmol/L (8-16); BILIRUBIN - TOTAL 0.28 mg/dL (0.2-1.3); CALCIUM 8.9 mg/dL (8.5-10.1); CARBON DIOXIDE 23.6 mmol/L (21.0-32.0); CREATININE - SERUM 1.4 mg/dL (0.6-1.3); POTASSIUM - SERUM 3.5 mmol/L (3.5-5.1); PROTEIN - SERUM 8.9 g/dL (6.4-8.2)
[2020-08-15 06:11] LABS: BASOPHILS 0.3 % (0-2); EOSINOPHILS 1.3 % (0-7); HEMOGLOBIN 13.2 g/dL (13.5-17.5); IMMATURE GRANULOCYTES 0.4 % (0-5); LYMPHOCYTE ABS# 2.97 10x3/uL (1.32-3.57); LYMPHOCYTES 20.7 % (15-50); MCH 33.3 pg (26.0-34.0); MCHC 33.8 g/dL (31.0-37.0); MCV 98.5 fL (80.0-100.0); MEAN PLATELET VOLUME 11.1 fL (7.4-10.4); MONOCYTES 4.3 % (2-11); NEUTROPHIL ABS# 10.46 10x3/uL (1.78-5.38); RBC 3.96 10x6/uL (4.20-6.10); RDW 13.9 % (11.5-14.5); WBC 14.4 10x3/uL (4.8-10.8)
[2020-08-15 06:27] VITALS: BP 141/82
[2020-08-15 06:36] LABS: PLATELET COUNT 300 10x3/uL (130-400)
--- NOTE | 2020-08-15 06:37 | NUR ---
PATIENT TO CT
--- NOTE | 2020-08-15 07:00 | NUR ---
REPORT REC'D FROM PREVIOUS SHIFT. PT LYING IN BED WITH EYES CLOSED, ROUSED TO VERBAL STIMULATION. DENIES PAIN AT THIS TIME. REQUESTING SOMETHING TO DRINK - PROVIDED.
[2020-08-15 07:30] VITALS: BP 110/74
--- NOTE | 2020-08-15 07:41 | NUR ---
FSBS 402
[2020-08-15 12:02] LABS: MONO NEGATIVE (NEGATIVE)
[2020-08-15 13:00] VITALS: BP 121/86
[2020-08-15 19:26] VITALS: BP 142/92
[2020-08-15 21:27] VITALS: BP 145/97
[2020-08-15 23:26] VITALS: BP 151/104
[2020-08-16 01:30] VITALS: BP 134/84
[2020-08-16 03:30] VITALS: BP 130/91
[2020-08-16 05:30] VITALS: BP 148/88
[2020-08-16 06:55] LABS: BASOPHILS 0.2 % (0-2); EOSINOPHILS 0.9 % (0-7); HEMATOCRIT 31.2 % (42.0-54.0); IMMATURE GRANULOCYTES 0.3 % (0-5); LYMPHOCYTE ABS# 3.01 10x3/uL (1.32-3.57); LYMPHOCYTES 26.9 % (15-50); MCV 96.9 fL (80.0-100.0); MEAN PLATELET VOLUME 10.4 fL (7.4-10.4); MONOCYTES 5.9 % (2-11); NEUTROPHIL ABS# 7.35 10x3/uL (1.78-5.38); NEUTROPHILS 65.8 % (40-80); PLATELET COUNT 259 10x3/uL (130-400); RBC 3.22 10x6/uL (4.20-6.10); RDW 13.6 % (11.5-14.5); WBC 11.2 10x3/uL (4.8-10.8)
[2020-08-16 06:56] LABS: HEMOGLOBIN 10.3 g/dL (13.5-17.5)
[2020-08-16 07:19] LABS: ALKALINE PHOSPHATASE 69 U/L (30-120); ALT (SGPT) 30 U/L (10-68); BILIRUBIN - TOTAL 0.32 mg/dL (0.2-1.3); CALCIUM 7.9 mg/dL (8.5-10.1); CARBON DIOXIDE 24.7 mmol/L (21.0-32.0); CHLORIDE - SERUM 104 mmol/L (98-107); MAGNESIUM - SERUM 1.6 mg/dL (1.8-2.4); POTASSIUM - SERUM 3.6 mmol/L (3.5-5.1); SODIUM 137 mmol/L (136-145)
[2020-08-16 07:24] LABS: ALBUMIN 2.7 g/dL (3.4-5.0); CALC OSMOLALITY 279 mosm/kg (275-300); CREATININE - SERUM 0.7 mg/dL (0.6-1.3); GLUCOSE 224 mg/dL (74-106); PROTEIN - SERUM 6.3 g/dL (6.4-8.2); UREA NITROGEN 10 mg/dL (7-18); eGFR NON AFRICAN AMERICAN > 90 mL/min (90-120)
[2020-08-16 10:11] LABS: EBV - NUCLEAR ANTIGEN AB IGG >600.0 U/mL (0.0-17.9); EBV VIRAL CAPSID AB IGG >600.0 U/mL (0.0-17.9); EBV VIRAL CAPSID AB IGM <36.0 U/mL (0.0-35.9)
[2020-08-16 12:45] VITALS: Ht 154.9 cm; Wt 54.4 kg
[2020-08-16 20:24] VITALS: BP 152/98
--- NOTE | 2020-08-16 20:24 | NUR ---
PT AWAKE, ASSESSMENT PER FLOW SHEET, VS OBTAINED, IV IN LEFT FA INTACT WITH NO REDNESS OR EDEMA INFUSING NS, ROCEPHIN HUNG IVPB PER MD ORDERS, SEE EMAR, PT DENIES PAIN, STATES "MY THROAT HURTS A LITTLE", PT REQUESTED AND SERVED CHICKEN BROTH AND SUGAR FREE JELLO, EMPTIED 500 MLS FROM URINAL, PT DENIES FURTHER NEEDS
--- NOTE | 2020-08-16 21:31 | NUR ---
ADM 2100 MEDS PER MD ORDERS, SEE EMAR, PT DENIES NEEDS A THIS TIME
--- NOTE | 2020-08-16 22:30 | NUR ---
PT WATCHING TV, REQUESTED AND SERVED SANDWICH TRAY AND DIET [place] SODA, PT DENIES FURTHER NEEDS OR PAIN
--- NOTE | 2020-08-16 23:47 | NUR ---
PT AWAKE, REQUESTED AND SERVED SUGAR FREE GRISELDA, DENIES FURTHER NEEDS
[2020-08-17 00:35] VITALS: BP 137/98
--- NOTE | 2020-08-17 03:08 | NUR ---
PT TOOL AND PRODUCTION PLANNER LIGHT, REQUESTED AND SERVED BEEF BROTH AND DIET [place] SODA, PT DENIES FURTHER NEEDS OR PAIN, EMPTIED 500 MLS OF CLEAR YELLOW URINE FROM URINAL
[2020-08-17 04:15] VITALS: BP 137/93
--- NOTE | 2020-08-17 04:15 | NUR ---
PT CREATIVE SERVICES PRODUCER LIGHT, PT REQUESTS BP CUFF TO BE OFF FOR A LITTLE WHILE, BP CUFF REMOVED AFTER VS OBTAINED, PT UP TO BR, HAD BM, PT BACK TO BED, CLEOCIN HUNG IVPB PER MD ORDERS, SEE EMAR, PUMPS CLEARED, EMPTIED URINAL, PT DENIES FURTHER NEEDS OR PAIN AT THIS TIME
--- NOTE | 2020-08-17 06:58 | NUR ---
SHIFT REPORT TO DAY SHIFT
[2020-08-17 08:27] LABS: BASOPHILS 0.4 % (0-2); EOSINOPHILS 1.7 % (0-7); HEMATOCRIT 31.1 % (42.0-54.0); HEMOGLOBIN 10.3 g/dL (13.5-17.5); IMMATURE GRANULOCYTES 0.1 % (0-5); LYMPHOCYTE ABS# 3.69 10x3/uL (1.32-3.57); LYMPHOCYTES 38.8 % (15-50); MCHC 33.1 g/dL (31.0-37.0); MCV 96.6 fL (80.0-100.0); MEAN PLATELET VOLUME 10.4 fL (7.4-10.4); MONOCYTES 7.8 % (2-11); NEUTROPHIL ABS# 4.86 10x3/uL (1.78-5.38); NEUTROPHILS 51.2 % (40-80); PLATELET COUNT 274 10x3/uL (130-400); RBC 3.22 10x6/uL (4.20-6.10); RDW 13.3 % (11.5-14.5); WBC 9.5 10x3/uL (4.8-10.8)
[2020-08-17 08:46] LABS: ALBUMIN 2.7 g/dL (3.4-5.0); ALKALINE PHOSPHATASE 64 U/L (30-120); ALT (SGPT) 25 U/L (10-68); BILIRUBIN - TOTAL 0.24 mg/dL (0.2-1.3); CALCIUM 8.4 mg/dL (8.5-10.1); CARBON DIOXIDE 26.2 mmol/L (21.0-32.0); CHLORIDE - SERUM 105 mmol/L (98-107); CREATININE - SERUM 0.7 mg/dL (0.6-1.3); MAGNESIUM - SERUM 1.6 mg/dL (1.8-2.4); POTASSIUM - SERUM 3.2 mmol/L (3.5-5.1); PROTEIN - SERUM 6.4 g/dL (6.4-8.2); SODIUM 139 mmol/L (136-145); eGFR NON AFRICAN AMERICAN > 90 mL/min (90-120)
[2020-08-17 08:48] LABS: CALC OSMOLALITY 273 mosm/kg (275-300); GLUCOSE 69 mg/dL (74-106); UREA NITROGEN 6 mg/dL (7-18)
[2020-08-17] MEDS ORDERED: CLEOCIN HCL300 MG PO (09:43)
[2020-08-17] MEDS ORDERED: OMNICEF300 MG PO (09:44)
[2020-08-17] MEDS ORDERED: GLUCOPHAGE1000 MG PO (09:45)
[2020-08-17] MEDS ORDERED: LEVEMIR FL100 UNIT/1 SC (09:45)
[2020-08-17 10:10] VITALS: BP 120/82
--- NOTE | 2020-08-17 10:59 | NUR ---
NS INFUSION STOPPED AT 1055
== END 2020-08-17 10:58 | disposition home or self-care (01) | DRG 153 ==
LOC: D.ER 04:37 → D.EDHOLD 13:13
PROVIDERS: Emergency Medicine; Family Medicine; ADMIT Family Medicine; ATTEND Family Medicine
DX: J02.9 Acute pharyngitis, unspecified (principal); E11.65 Type 2 diabetes mellitus with hyperglycemia; I10 Essential (primary) hypertension; E78.5 Hyperlipidemia, unspecified; K21.9 Gastro-esophageal reflux disease without esophagitis; E86.0 Dehydration; K20.90 Esophagitis, unspecified without bleeding

== ENCOUNTER 2020-11-12 22:32 | Emergency (ER) | payer BC ==
[~2020-11-12] VITALS: Ht 154.9 cm; Wt 49.9 kg
[~2020-11-12 22:32] MED LIST changes: +OMNICEF300 MG PO
[2020-11-12] MEDS ORDERED: MOBIC7.5 MG PO (22:40)
[2020-11-12 22:41] VITALS: Ht 154.9 cm; Wt 49.9 kg
[2020-11-12 22:50] LABS: EOSINOPHILS 1.8 % (0-7); HEMATOCRIT 40.1 % (42.0-54.0); HEMOGLOBIN 13.1 g/dL (13.5-17.5); LYMPHOCYTES 27.9 % (15-50); MCH 31.8 pg (26.0-34.0); MCHC 32.7 g/dL (31.0-37.0); MCV 97.1 fL (80.0-100.0); MEAN PLATELET VOLUME 10.1 fL (7.4-10.4); MONOCYTES 4.6 % (2-11); NEUTROPHILS 64.7 % (40-80); PLATELET COUNT 252 10x3/uL (130-400); RBC 4.13 10x6/uL (4.20-6.10); RDW 12.2 % (11.5-14.5); WBC 11.8 10x3/uL (4.8-10.8)
[2020-11-12 22:52] LABS: BILIRUBIN NEGATIVE (NEGATIVE); KETONE SMALL mg/dL (NEGATIVE); NITRITE NEGATIVE (NEGATIVE); UROBILINOGEN NORMAL mg/dL (< 2)
[2020-11-12 23:03] LABS: ALBUMIN 3.9 g/dL (3.4-5.0); BILIRUBIN - TOTAL 0.45 mg/dL (0.2-1.3); CARBON DIOXIDE 28.8 mmol/L (21.0-32.0); CREATININE - SERUM 1.2 mg/dL (0.6-1.3); POTASSIUM - SERUM 4.8 mmol/L (3.5-5.1); PROTEIN - SERUM 8.2 g/dL (6.4-8.2)
[2020-11-13 01:10] VITALS: BP 106/73
== END 2020-11-13 05:32 | disposition home or self-care (01) ==
LOC: D.ER 22:32
PROVIDERS: Student in an Organized Health Care Education/Training Program
DX: E11.65 Type 2 diabetes mellitus with hyperglycemia (principal); E11.40 Type 2 diabetes mellitus with diabetic neuropathy, unspecified; I10 Essential (primary) hypertension; E78.5 Hyperlipidemia, unspecified; K21.9 Gastro-esophageal reflux disease without esophagitis; Z79.4 Long term (current) use of insulin; R53.81 Other malaise

== ENCOUNTER 2020-12-15 23:29 | Emergency (ER) | payer BC ==
[~2020-12-15] VITALS: Ht 154.9 cm; Wt 54.5 kg
[~2020-12-15 23:29] MED LIST changes: +MOBIC7.5 MG PO
[2020-12-15 23:41] VITALS: Ht 154.9 cm; Wt 54.5 kg
[2020-12-16] MEDS ORDERED: CLEOCIN HCL300 MG PO (03:13)
[2020-12-16 03:26] VITALS: BP 116/76
== END 2020-12-16 03:26 | disposition home or self-care (01) ==
LOC: D.ER 23:29
DX: N49.2 Inflammatory disorders of scrotum (principal); E11.65 Type 2 diabetes mellitus with hyperglycemia; I10 Essential (primary) hypertension; I25.2 Old myocardial infarction; M32.9 Systemic lupus erythematosus, unspecified; Z79.4 Long term (current) use of insulin; Z72.0 Tobacco use

== ENCOUNTER 2020-12-17 15:41 | Observation (INO) | payer MEDICAID ==
[~2020-12-17] VITALS: Ht 154.9 cm; Wt 54.5 kg
[2020-12-17 15:43] VITALS: Ht 154.9 cm; Wt 54.5 kg
[2020-12-17 16:00] VITALS: BP 136/88
[2020-12-17 16:30] LABS: CALC OSMOLALITY 283 mosm/kg (275-300); CALCIUM 9.1 mg/dL (8.5-10.1); CARBON DIOXIDE 24.2 mmol/L (21.0-32.0); CHLORIDE - SERUM 97 mmol/L (98-107); POTASSIUM - SERUM 4.2 mmol/L (3.5-5.1); SODIUM 134 mmol/L (136-145); UREA NITROGEN 20 mg/dL (7-18); eGFR NON AFRICAN AMERICAN 87 mL/min (90-120)
[2020-12-17 16:31] LABS: BASOPHILS 1.7 % (0-2); EOSINOPHILS 0.9 % (0-7); HEMATOCRIT 36.8 % (42.0-54.0); HEMOGLOBIN 12.1 g/dL (13.5-17.5); LYMPHOCYTES 25.1 % (15-50); MCH 31.6 pg (26.0-34.0); MCHC 32.9 g/dL (31.0-37.0); MCV 96.1 fL (80.0-100.0); MEAN PLATELET VOLUME 9.8 fL (7.4-10.4); MONOCYTES 4.9 % (2-11); NEUTROPHILS 67.4 % (40-80); PLATELET COUNT 240 10x3/uL (130-400); RBC 3.83 10x6/uL (4.20-6.10); RDW 12.3 % (11.5-14.5); WBC 9.9 10x3/uL (4.8-10.8)
[2020-12-17 16:36] LABS: GLUCOSE 339 mg/dL (74-106)
[2020-12-17 16:46] LABS: ALBUMIN 3.8 g/dL (3.4-5.0); ALKALINE PHOSPHATASE 116 U/L (30-120); ALT (SGPT) 36 U/L (10-68); BILIRUBIN - TOTAL 0.48 mg/dL (0.2-1.3); CKMB 2.4 U/L (0.0-3.6); CREATINE KINASE 131 UL (21-232); PROTEIN - SERUM 8.1 g/dL (6.4-8.2); TROPONIN-I 0.027 ng/mL (0.000-0.060)
--- NOTE | 2020-12-17 17:09 | NUR ---
PATIENT GIVEN 324MG ASPIRIN BY EMS PRIOR TO ARRIVAL IN THE ED
--- NOTE | 2020-12-17 18:31 | NUR ---
PATIENT GIVEN URINAL UPON REQUEST TO NURSE
--- NOTE | 2020-12-17 18:44 | NUR ---
PATIENT IV FLUSHED FOR PATENCY. PATIENT GIVEN SANDWICH AND WATER PER HCP VERBAL APPROVAL. PATIENT ABLE TO EAT UNTIL 0000.
[2020-12-17 19:23] LABS: CKMB 3.1 U/L (0.0-3.6); TROPONIN-I 0.018 ng/mL (0.000-0.060)
[2020-12-17 19:50] LABS: CREATINE KINASE 319 UL (21-232)
--- NOTE | 2020-12-17 21:14 | NUR ---
BEDSIDE GLUCOSE TAKEN BY NURSE, READING 462
--- NOTE | 2020-12-18 00:29 | NUR ---
PATIENT AMBULATED TO BATHROOM
--- NOTE | 2020-12-18 01:30 | NUR ---
REPORT FROM AARTI SALGUERO. PT RESTING IN [place] AT THIS TIME DENIES NEEDS. SEE EMAR.
[2020-12-18 02:11] LABS: CKMB 2.2 U/L (0.0-3.6); CREATINE KINASE 138 UL (21-232); TROPONIN-I 0.038 ng/mL (0.000-0.060)
--- NOTE | 2020-12-18 03:00 | NUR ---
PT GIVEN URINAL PT ABLE TO STAND AT BEDSIDE WITHOUT ASSISTANCE. DENIES FURTHER NEEDS.
[2020-12-18 03:26] VITALS: BP 109/83
[2020-12-18 04:30] VITALS: BP 105/69
--- NOTE | 2020-12-18 05:48 | NUR ---
PT BS 58, RECHECKED TO CONFIRM. PT BS READ 64. PT GIVEN OGerri AND MAIRA GRIFFIN.
[2020-12-18 06:03] VITALS: BP 109/85
[2020-12-18 06:53] VITALS: BP 100/85
[2020-12-18 07:09] LABS: BASOPHILS 0.7 % (0-2); EOSINOPHILS 1.8 % (0-7); HEMATOCRIT 35.7 % (42.0-54.0); HEMOGLOBIN 11.8 g/dL (13.5-17.5); LYMPHOCYTES 22.1 % (15-50); MCH 31.5 pg (26.0-34.0); MCHC 33.2 g/dL (31.0-37.0); MCV 94.8 fL (80.0-100.0); MEAN PLATELET VOLUME 8.1 fL (7.4-10.4); MONOCYTES 5.4 % (2-11); PLATELET COUNT 281 10x3/uL (130-400); RBC 3.77 10x6/uL (4.20-6.10); RDW 12.4 % (11.5-14.5); WBC 10.4 10x3/uL (4.8-10.8)
[2020-12-18 07:32] LABS: CKMB 2.4 U/L (0.0-3.6); CREATINE KINASE 125 UL (21-232); TROPONIN-I 0.038 ng/mL (0.000-0.060)
[2020-12-18 07:41] LABS: ALBUMIN 3.1 g/dL (3.4-5.0); ALKALINE PHOSPHATASE 93 U/L (30-120); BILIRUBIN - TOTAL 0.26 mg/dL (0.2-1.3); CALC OSMOLALITY 281 mosm/kg (275-300); CALCIUM 8.5 mg/dL (8.5-10.1); CARBON DIOXIDE 27.3 mmol/L (21.0-32.0); CHLORIDE - SERUM 98 mmol/L (98-107); CHOLESTEROL, TOTAL 107 mg/dL (0-200); CREATININE - SERUM 0.9 mg/dL (0.6-1.3); GLUCOSE 292 mg/dL (74-106); HDL CHOLESTEROL 27 mg/dL (32-96); LDL CHOLESTEROL 49 mg/dL (0-100); LDL-HDL RATIO 1.8 ratio (1.5-3.5); MAGNESIUM - SERUM 1.8 mg/dL (1.8-2.4); POTASSIUM - SERUM 3.8 mmol/L (3.5-5.1); PROTEIN - SERUM 6.9 g/dL (6.4-8.2); SODIUM 134 mmol/L (136-145); TRIGLYCERIDE 156 mg/dL (30-200); UREA NITROGEN 20 mg/dL (7-18); eGFR NON AFRICAN AMERICAN > 90 mL/min (90-120)
[2020-12-18 07:57] LABS: ALT (SGPT) 24 U/L (10-68)
[2020-12-18] MEDS ORDERED: LEVEMIR IN100 UNITS/ SC (08:41)
--- NOTE | 2020-12-18 08:41 | NUR ---
INFORMED DR. LOERA OF PTS BLOOD SUGAR, WANTS PT TO HAVE HIS LEVIMER ONCE A DAY AT NOON. INSTEAD OF BID.
[2020-12-18] MEDS ORDERED: NICODERM CQ1 EAC3 TRANSDERM (09:10)
[2020-12-18] MEDS ORDERED: ALBUTEROL2.5 MG/3 M UPD (09:10)
[2020-12-18] MEDS ORDERED: PROTONIX40 MG PO (09:11)
[2020-12-18] MEDS ORDERED: CARAFATE1 G PO (09:11)
[2020-12-18] MEDS ORDERED: ALBUTEROL SULF8.5 GM INH (11:18)
[2020-12-18 11:57] VITALS: BP 109/72
== END 2020-12-18 18:00 | disposition home or self-care (01) ==
LOC: D.ER 15:41 → D.EDHOLD 17:03 → OBSVTIME 17:03 → D.EDHOLD 12-18 17:05
PROVIDERS: Family Medicine; ADMIT Family Medicine; ATTEND Family Medicine
DX: R07.9 Chest pain, unspecified (principal); D64.9 Anemia, unspecified; E11.9 Type 2 diabetes mellitus without complications; E87.1 Hypo-osmolality and hyponatremia; I10 Essential (primary) hypertension; F17.200 Nicotine dependence, unspecified, uncomplicated; N40.0 Benign prostatic hyperplasia without lower urinary tract symptoms; M32.9 Systemic lupus erythematosus, unspecified; Z79.4 Long term (current) use of insulin